=== PATIENT | female | born 1985 | race Caucasian/White ===

== ENCOUNTER 2024-04-08 10:58 | Outpatient (OUT) | payer OTHER, BC, SELFPAY ==
[2024-04-08 11:30] LABS: Alanine Aminotransferase 22 U/L (14-59); Anion Gap 12.3; Aspartate Amino Transferase 12 U/L (15-37); Carbon Dioxide 25.6 mmol/L (21.0-32.0); Chloride 103 mmol/L (98-107); Potassium 3.9 mmol/L (3.5-5.1); Sodium 137 mmol/L (136-145)
[2024-04-14 15:10] LABS: Oxcarbazepine (Trileptal),S 13 ug/mL (10-35)
== END 2024-04-08 10:59 | disposition home or self-care (01) ==
LOC: LAB 11:02
PROVIDERS: PCP Family Medicine; Visit Provider Psychiatry & Neurology Neurology
DX: R51.9 Headache, unspecified (principal); G40.909 Epilepsy, unspecified, not intractable, without status epilepticus
CPT/HCPCS: 36415; 80051; 80183; 84450; 84460

== ENCOUNTER 2024-05-24 10:09 | Outpatient (OUT) | payer OTHER, BC, SELFPAY ==
--- OUTSIDE RECORDS SUMMARY | 2024-05-24 10:33 | XMS_ITS | CCD ---
Author Organization [facility] Care Team Providers Care Psychiatric Np Name Role Phone FRANCIE GUADALUPE Unavailable Unavailable FRANCIE GUADALUPE Unavailable Unavailable SELF, REFERRED Unavailable Unavailable BECERRA DUANE Unavailable Unavailable HUMBLE, ABDULAZIM Unavailable Unavailable HUMBLE, ABDULAZIM Unavailable Unavailable SELF, REFERRED Unavailable Unavailable BECERRA, DUANE Unavailable Unavailable AK Unavailable Unavailable HUMBLE, ABDULAZIM Unavailable Unavailable [place] Unavailable Unavailable [facility] Unavailable Unavailable Wynkoop, Leticia Unavailable Unavailable Wynkoop, Leticia Unavailable Unavailable Wynkoop, Leticia Unavailable Unavailable BECERRA, DUANE Unavailable Unavailable Wynkoop, Leticia Unavailable Unavailable Wynkoop, Leticia Unavailable Unavailable Wynkoop, Leticia Unavailable Unavailable BECERRA, DUANE Unavailable Unavailable BECERRA, DR DEAL A Primary Care Unavailable PAY, DR PACE Admitting Unavailable PAY, DR PACE Attending Unavailable GRECHPAO SMITH Consulting Unavailable BILL SHANE Consulting Unavailable KARASIK, DR CHIANG Admitting Unavailable KARASIK, DR CHIANG Attending Unavailable BECERRA, DR DEAL A Primary Care Unavailable KARASIK, DR CHIANG Consulting Unavailable BECERRA, DR DEAL A Primary Care Unavailable RADHA BOSCH Admitting Unavailable RADHA BOSCH Attending Unavailable RADHA BOSCH Consulting Unavailable Brigitte Bradley Unavailable BEN RHODES Attending Unavailable BEN RHODES Attending Unavailable Unallocated , Noms Provider Primary Care Provi isaiah Allergies Allergy Classification Reported Allergen(s) Allergy Type Date of Onset Reaction(s) Facility (1 source) acetaminophen / HYDROcodone Drug Allergy 12-07-2017 [facility] Medications Current Medications Medication Drug Class(es) Dates Sig (Normalized) Sig (Original) busPIRone hydrochloride 5 mg oral tablet (4 sources) Start: 09-24-2023 take 5 mg by mouth once daily Buspirone Active 5 MG PO Daily September 24, 2023 12:00am Start: 03-30-2023 busPIRone (Bus par) 5 MG tablet every 12 (twelve) hours. 03/30/2023 Active Crutches-Aluminum - (1 source) Start: 12-27-2018 Crutches-Alumi num - as directed Dec, Active magnesium oxide 500 mg oral tablet (4 sources) Start: 09-24-2023 magnesium oxid e 500 MG tablet Daily 09/24/2023 Active Start: 09-24-2023 take 250 mg by mouth once iron y Magnesium Oxide Active 250 MG PO Daily September 24, 2023 12:00am ondansetron 4 mg disintegrating oral tablet (4 sources) Serotonin-3 Receptor Antagonist Start: 12-19-2021 take 1 tablet by mouth every eight hours as needed ondansetron ODT (Zofran-ODT) 4 MG disintegrating tablet Take 4 mg by mouth every 8 (eight) hours if needed. 12/19/2021 Active Start: 05-31-2021 take 1 tablet under the tongue three times daily as needed for nausea and vomiting Zofran 4 MG 1 tablet Orally TID prn 1 tablet sublingual up to 3 times a day as needed for nausea and vomiting May, Active OXcarbazepine 300 mg oral tablet (7 sources) Anti-epileptic Agent Start: 02-03-2024 End: 10-09-2024 take 1 tablet by mouth in the morning OXcarbazepine (Trileptal) 300 MG tablet Indications: Epilepsy undetermined as to focal or generalized (CMS/HCC) Take 1 tablet (300 mg) by mouth in the morning and 1 tablet (300 mg) before bedtime. 60 tablet 5 04/12/2024 10/09/2024 Active Start: 09-24-2023 take 300 mg by mouth twice daily Oxcarbazepine Active 300 MG PO Twice daily September 24, 2023 12:00am Trileptal Active pantoprazole 40 mg delayed release oral tablet (2 sources) Proton Pump Inhibitor take 1 tablet by mouth before mealtime pantoprazole (ProtoNix) 40 MG EC tablet Take 40 mg by mouth in the morning. Take before meals. Do not crush, chew, or split.. Active rizatriptan 10 mg oral tablet (2 sources) Serotonin-1b and Serotonin-1d Receptor Agonist Start: rizatriptan (Maxalt) 10 MG tablet Indications: Migraine without aura, not intractable, without status migrainosus (CMS/HCC) 1 tab PRN migraine, may repeat in 2 hours if needed. No more than 2 per TINAJERO or 4 per week. 9 tablet 5 04/12/2024 Active Completed/Discontinued Medications Medication Drug Class(es) Dates Sig (Normalized) Sig (Original) Levonorgestrel (1 source) Progestin, Progestin-containi ng Intrauterine Device Mirena Not-Taking 24 hr metoprolol succinate 25 mg extended release oral tablet (6 sources) beta-Adrenergic Carey Start: 03-16-2024 End: 04-12-2024 take 1 tablet by mouth every twenty-four hours in the morning metoprolol succinate XL (Toprol-XL) 25 MG 24 hr tablet Indications: Migraine without aura, not intractable, without status migrainosus (CMS/HCC) TAKE 1 TABLET BY MOUTH IN THE MORNING 30 tablet 03/16/2024 04/12/2024 Discontinued Start: 09-24-2023 Metoprolol Suc cinate Active MG PO September 24, 2023 12:00am take 1 tablet by neil th every twenty-four hours metoprolol succinate XL (Toprol-XL) 100 MG 24 hr tablet Take by mouth Do not crush or chew. Active SUMAtriptan 100 mg oral tablet (3 sources) Serotonin-1b and Serotonin-1d Receptor Agonist Start: 04-28-2022 End: 04-12-2024 take 1 tablet by mouth once SUMAtriptan (Imitrex) 100 MG tablet Take 100 mg by mouth 1 (one) time if needed. 04/28/2022 04/12/2024 Discontinued Problems Active Problems Problem Classification Problem Date Documented Date Episodic/Chronic Abdominal pain (7 sources) Right upper quadrant pain; Translations: [Epigastric pain] Onset: 10-04-2021 Episodic Biliary tract disease (2 sources) Calculus of bile duct without cholangitis or cholecystitis without obstruction; Translations: [Calculus of gallbladder without cholecystitis without obstruction] Onset: 10-08-2021 Episodic Digestive congenital anomalies (3 sources) Enlargement of tongue; Translations: [Macroglossia] Onset: 02-01-2023 02-01-2023 Chronic Epilepsy; convulsions (6 sources) Epilepsy, unspecified, not intractable, without status epilepticus; Translations: [Epilepsy] Onset: 12-04-2017 02-01-2023 Chronic External Injury - Cut / Brewer (1 source) Contact with powered garden and outdoor hand tools and machinery, initial encounter; Translations: [CNTCT W POWERED GARDEN AND OUTDOOR HAND TOOLS AND MACH, INIT] Onset: 12-04-2017 External Injury - Unspecified (1 source) Activity, gardening and landscaping; Translations: [ACTIVITY, GARDENING AND LANDSCAPING] Onset: 12-04-2017 Headache; including migraine (5 sources) Migraine without aura, not refractory ; Translations: [Migraine without aura, not intractable, without status migrainosus] Onset: 02-01-2023 02-01-2023 Chronic Open wounds of extremities (4 sources) Laceration of flexor muscle, fascia and tendon of right index finger at wrist and hand level, subsequent encounter; Translations: [Laceration of flexor muscle, fascia and tendon of right index finger at wrist and hand level, initial encounter] Onset: 12-04-2017 Episodic Other aftercare (1 source) Other terminologist (current) drug therapy; Translations: [OTH ROLLWAY WORKER CURRENT DRUG THERAPY] Onset: 10-08-2021 Episodic Other connective tissue disease (5 sources) Spasm of cervical paraspinous muscle; Translations: [Other muscle spasm] Onset: 02-03-2023 02-03-2023 Episodic Other injuries and conditions due to external causes (7 sources) Injury of digital nerve of right index finger, initial encounter; Translations: [Unspecified injury of right wrist, hand and finger(s), initial encounter] Onset: 12-04-2017 Episodic Other nervous system disorders (3 sources) Circadian rhythm sleep disorder of shift work type; Translations: [Circadian rhythm sleep disorder, shift work type] Onset: 02-01-2023 02-01-2023 Chronic Residual codes; unclassified (5 sources) Obstructive sleep apnea syndrome; Translations: [Obstructive sleep apnea (adult) (pediatric)] Onset: 02-01-2023 02-01-2023 Chronic Substance-related disorders (2 sources) Nicotine dependence, unspecified, uncomplicated; Translations: [Nicotine dependence, cigarettes, uncomplicated] Onset: 12-04-2017 Chronic Unclassified (2 sources) Unknown / UNK(Unknown) Onset: 12-04-2017 Unclassified (1 source) ELEV LVLS LIVER TRANSAMINASE LVLS; Translations: [ELEV LVLS LIVER TRANSAMINASE LVLS] Onset: 10-08-2021 Past or Other Problems Problem Classification Problem Date Documented Date Episodic/Chronic Headache; including migraine (1 source) Headache; including migraine Onset: 05-31-2021 Resolved: 05-31-2021 Immunizations and screening for infectious disease (1 source) Encounter for screening for human papillomavirus (HPV); Translations: [ENC SCREENING HUMAN PAPILLOMAVIRUS] Onset: 08-01-2021 Episodic Other screening for suspected conditions (not mental disorders or infectious disease) (4 sources) Encounter for screening for malignant neoplasm of cervix; Translations: [ENC SCREENING MALIG NEOPLASM CERV] Onset: 07-30-2021 Episodic Other upper respiratory disease (3 sources) Pharyngeal stenosis; Translations: [Other diseases of pharynx] Onset: 02-01-2023 02-01-2023 Episodic Spondylosis; intervertebral disc disorders; other back problems (3 sources) Myofascial pain syndrome; Translations: [Cervicalgia] Onset: 02-03-2023 02-03-2023 Episodic Results Test Name Value Interpretation Reference Range Facility No Panel InformationOrdered By: Zenobia Vyas on 09-24-2023 Quick Strep (POC) [facility] AMYLASEon 12-19-2021 Amylase [Catalytic activity/Vol] 49 U/L Normal 25-115 [facility] Comment on above: Performed By: #### L IPA, LIVER, BMP, NIMESH #### [facility] [address] [address] [address] Remington Correia CBC AUTO DIFFon 12-19-2021 BASO # 0.0 103/ul Normal 0.0-0.1 [facility] Comment on above: Performed By: #### C BC #### [facility] [address] [address] [address] Remington Correia Basophils/100 WBC (Bld) 0.2 % Normal 0.2-2.0 [facility] Comment on above: Performed By: #### C BC #### [facility] [address] [address] [address] Remington Correia EO # 0.1 103/ul Normal 0.0-0.7 [facility] Comment on above: Performed By: #### C BC #### [facility] [address] [place] [address] Dr. Remington Correia Eosinophils/100 WBC (Bld) 1.6 % Normal 0.9-7.0 [facility] Comment on above: Performed By: #### C BC #### [facility] [address] [place] [address] Dr. Remington Correia Erythrocyte distribution width (RBC) [Ratio] 12.1 % Normal 11.0-15.0 [facility] Comment on above: Performed By: #### C BC #### [facility] [address] [place] [address] Dr. Remington Correia Hematocrit (Bld) [Volume fraction] 40.2 % Normal 36.0-48.0 [facility] Comment on above: Performed By: #### C BC #### [facility] [address] [place] [address] Dr. Remington Correia Hemoglobin (Bld) [Mass/Vol] 13.7 g/dL Normal 12.0-16.0 [facility] Comment on above: Performed By: #### C BC #### [facility] [address] [place] [address] Dr. Remington Correia IG # 0.04 10e3/ul Critically high 0.00-0.03 [facility] Comment on above: Performed By: #### C BC #### [facility] [address] [place] [address] Dr. Remington Correia IG % 0.5 % Normal 0.0-0.5 [facility] Comment on above: Performed By: #### C BC #### [facility] [address] [place] [address] Dr. Remington Correia LYMPH # 1.5 103/ul Normal 1.2-3.8 [facility] Comment on above: Performed By: #### C BC #### [facility] [address] [place] [address] Dr. Remington Correia Lymphocytes/100 WBC (Bld) 17.2 % Critically low 20.5-60.0 [facility] Comment on above: Performed By: #### C BC #### [facility] [address] [place] [address] Dr. Remington Correia MANUAL DIFF REQ NO Normal [facility] Comment on above: Performed By: #### C BC #### [facility] [address] [place] [address] Dr. Remington Correia MCH (RBC) [Entitic mass] 32.4 pg Normal 26.7-34.0 [facility] Comment on above: Performed By: #### C BC #### [facility] [address] [place] [address] Dr. Remington Correia MCHC (RBC) [Mass/Vol] 34.1 g/dL Normal 29.9-35.2 [facility] Comment on above: Performed By: #### C BC #### [facility] [address] [place] [address] Dr. Remington Correia MCV (RBC) [Entitic vol] 95.0 fL Normal 81.0-99.0 [facility] Comment on above: Performed By: #### C BC #### [facility] [address] [place] [address] Dr. Remington Correia MONO # 0.7 103/ul Normal 0.3-0.8 [facility] Comment on above: Performed By: #### C BC #### [facility] [address] [place] [address] Dr. Remington Correia Monocytes/100 WBC (Bld) 7.7 % Normal 1.7-12.0 [facility] Comment on above: Performed By: #### C BC #### [facility] [address] [place] [address] Dr. Remington Correia NEUT # 6.5 103/ul Normal 1.4-6.5 [facility] Comment on above: Performed By: #### C BC #### [facility] [address] [place] [address] Dr. Remington Correia Neutrophils/100 WBC (Bld) 72.8 % Normal 43.0-75.0 [facility] Comment on above: Performed By: #### C BC #### [facility] [address] [place] [address] Dr. Remington Correia Platelet mean volume (Bld) [Entitic vol] 9.0 fL Critically low 9.5-13.5 [facility] Comment on above: Performed By: #### C BC #### [facility] [address] [place] [address] Dr. Remington Correia PLT 344 103/ul Normal 150-450 [facility] Comment on above: Performed By: #### C BC #### [facility] [address] [place] [address] Dr. Remington Correia RBC 4.23 106/ul Normal 4.20-5.40 [facility] Comment on above: Performed By: #### C BC #### [facility] [address] [place] [address] Dr. Remington Correia WBC 8.9 103/ul Normal 4.0-11.0 [facility] Comment on above: Performed By: #### C BC #### [facility] [address] [place] [address] Dr. Remington Correia LIPASEon 12-19-2021 Lipase [Catalytic activity/Vol] 84.0 U/L Normal 73.0-393.0 [facility] Comment on above: Performed By: #### L IPA, LIVER, BMP, NIMESH #### [facility] [address] [place] [address] Dr. Remington Correia LIVER PROFILEon 12-19-2021 Albumin [Mass/Vol] 4.1 g/dL Normal 3.4-5.0 [facility] Comment on above: Performed By: #### L IPA, LIVER, BMP, NIMESH #### [facility] [address] [place] [address] Dr. Remington Correia Albumin/Globulin [Mass ratio] 1.2 {ratio} Normal [facility] Comment on above: Performed By: #### L IPA, LIVER, BMP, NIMESH #### [facility] [address] [address] [address] Remington Correia ALP [Catalytic activity/Vol] 49 U/L Normal 46-116 [facility] Comment on above: Performed By: #### L IPA, LIVER, BMP, NIMESH #### [facility] [address] [place] [address] Dr. Remington Correia ALT [Catalytic activity/Vol] 36 U/L Normal 14-59 [facility] Comment on above: Performed By: #### L IPA, LIVER, BMP, NIMESH #### [facility] [address] [place] [address] Dr. Remington Correia AST [Catalytic activity/Vol] 32 U/L Normal 15-37 [facility] Comment on above: Performed By: #### L IPA, LIVER, BMP, NIMESH #### [facility] [address] [place] [address] Dr. Remington Correia BILI, CONJUGATED 0.2 mg/dL Normal 0.0-0.2 [facility] Comment on above: Performed By: #### L IPA, LIVER, BMP, NIMESH #### [facility] [address] [place] [address] Dr. Remington Correia Bilirubin [Mass/Vol] 0.5 mg/dL Normal 0.2-1.0 [facility] Comment on above: Performed By: #### L IPA, LIVER, BMP, NIMESH #### [facility] [address] [place] [address] Dr. Remington Correia Globulin (S) [Mass/Vol] 3.5 g/dL Normal [facility] Comment on above: Performed By: #### L IPA, LIVER, BMP, NIMESH #### [facility] [address] [place] [address] Dr. Remington Correia Protein [Mass/Vol] 7.6 g/dL Normal 6.4-8.2 [facility] Comment on above: Performed By: #### L IPA, LIVER, BMP, NIMESH #### [facility] [address] [place] [address] Dr. Remington Correia PROF CHEM 8 (BAS METB)on Anion gap [Moles/Vol] 14.1 mmol/L Normal [facility] Comment on above: Performed By: #### L IPA, LIVER, BMP, NIMESH #### [facility] [address] [address] [address] Remington Correia Calcium [Mass/Vol] 9.0 mg/dL Normal 8.5-10.1 [facility] Comment on above: Performed By: #### L IPA, LIVER, BMP, NIMESH #### [facility] [address] [address] [address] Remington Correia Chloride [Moles/Vol] 101 mmol/L Normal 98-107 [facility] Comment on above: Performed By: #### L IPA, LIVER, BMP, NIMESH #### [facility] [address] [place] [address] Dr. Remington Correia CO2 [Moles/Vol] 26.5 mmol/L Normal 21.0-32.0 [facility] Comment on above: Performed By: #### L IPA, LIVER, BMP, NIMESH #### [facility] [address] [address] [address] Remington Correia Creatinine [Mass/Vol] 0.80 mg/dL Normal 0.55-1.02 [facility] Comment on above: Performed By: #### L IPA, LIVER, BMP, NIMESH #### [facility] [address] [address] [address] Remington Correia EGFR-AF MONEGASQUE >60 Normal >=60 [facility] Comment on above: Performed By: #### L IPA, LIVER, BMP, NIMESH #### [facility] [address] [address] [address] Remington Correia EGFR-NON AF MONEGASQUE >60 Normal >=60 [facility] Comment on above: Performed By: #### L IPA, LIVER, BMP, NIMESH #### [facility] [address] [address] [address] Remington Correia Glucose [Mass/Vol] 123 mg/dL Critically high 74-106 [facility] Comment on above: Performed By: #### L IPA, LIVER, BMP, NIMESH #### [facility] [address] [place] [address] Dr. Remington Correia Potassium [Moles/Vol] 3.6 mmol/L Normal 3.5-5.1 [facility] Comment on above: Performed By: #### L IPA, LIVER, BMP, NIMESH #### [facility] [address] [place] [address] Dr. Remington Correia Sodium [Moles/Vol] 138 mmol/L Normal 136-145 [facility] Comment on above: Performed By: #### L IPA, LIVER, BMP, NIMESH #### [facility] [address] [place] [address] Dr. Remington Correia Urea nitrogen [Mass/Vol] 9.0 mg/dL Normal 7.0-18.0 [facility] Comment on above: Performed By: #### L IPA, LIVER, BMP, NIMESH #### [facility] [address] [place] [address] Dr. Remington Correia Urea nitrogen/Creatinine [Mass ratio] 11.2 mg/mg Normal [facility] Comment on above: Performed By: #### L IPA, LIVER, BMP, NIMESH #### [facility] [address] [place] [address] Dr. Remington Correia CBC AUTO DIFFon 10-04-2021 BASO # 0.0 103/ul Normal 0.0-0.1 [facility] Comment on above: Performed By: #### L IPA, LIVER, BMP, NIMESH #### [facility] [address] [place] [address] Dr. Remington Correia Basophils/100 WBC (Bld) 0.3 % Normal 0.2-2.0 [facility] Comment on above: Performed By: #### L IPA, LIVER, BMP, NIMESH #### [facility] [address] [place] [address] Dr. Remington Correia EO # 0.1 103/ul Normal 0.0-0.7 [facility] Comment on above: Performed By: #### L IPA, LIVER, BMP, NIMESH #### [facility] [address] [place] [address] Dr. Remington Correia Eosinophils/100 WBC (Bld) 0.4 % Critically low 0.9-7.0 [facility] Comment on above: Performed By: #### L IPA, LIVER, BMP, NIMESH #### [facility] [address] [place] [address] Dr. Remington Correia Erythrocyte distribution width (RBC) [Ratio] 11.9 % Normal 11.0-15.0 [facility] Comment on above: Performed By: #### L IPA, LIVER, BMP, NIMESH #### [facility] [address] [place] [address] Dr. Remington Correia Hematocrit (Bld) [Volume fraction] 41.4 % Normal 36.0-48.0 [facility] Comment on above: Performed By: #### L IPA, LIVER, BMP, NIMESH #### [facility] [address] [place] [address] Dr. Remington Correia Hemoglobin (Bld) [Mass/Vol] 14.1 g/dL Normal 12.0-16.0 [facility] Comment on above: Performed By: #### L IPA, LIVER, BMP, NIMESH #### [facility] [address] [place] [address] Dr. Remington Correia IG # 0.04 10e3/ul Critically high 0.00-0.03 [facility] Comment on above: Performed By: #### L IPA, LIVER, BMP, NIMESH #### [facility] [address] [place] [address] Dr. Remington Correia IG % 0.3 % Normal 0.0-0.5 [facility] Comment on above: Performed By: #### L IPA, LIVER, BMP, NIMESH #### [facility] [address] [place] [address] Dr. Remington Correia LYMPH # 1.8 103/ul Normal 1.2-3.8 [facility] Comment on above: Performed By: #### L IPA, LIVER, BMP, NIMESH #### [facility] [address] [place] [address] Dr. Remington Correia Lymphocytes/100 WBC (Bld) 13.5 % Critically low 20.5-60.0 [facility] Comment on above: Performed By: #### L IPA, LIVER, BMP, NIMESH #### [facility] [address] [address] [address] Remington Correia MANUAL DIFF REQ NO Normal [facility] Comment on above: Performed By: #### L IPA, LIVER, BMP, NIMESH #### [facility] [address] [place] [address] Dr. Remington Correia MCH (RBC) [Entitic mass] 31.9 pg Normal 26.7-34.0 [facility] Comment on above: Performed By: #### L IPA, LIVER, BMP, NIMESH #### [facility] [address] [place] [address] Dr. Remington Correia MCHC (RBC) [Mass/Vol] 34.1 g/dL Normal 29.9-35.2 [facility] Comment on above: Performed By: #### L IPA, LIVER, BMP, NIMESH #### [facility] [address] [place] [address] Dr. Remington Correia MCV (RBC) [Entitic vol] 93.7 fL Normal 81.0-99.0 [facility] Comment on above: Performed By: #### L IPA, LIVER, BMP, NIMESH #### [facility] [address] [place] [address] Dr. Remington Correia MONO # 1.1 103/ul Critically high 0.3-0.8 [facility] Comment on above: Performed By: #### L IPA, LIVER, BMP, NIMESH #### [facility] [address] [place] [address] Dr. Remington Correia Monocytes/100 WBC (Bld) 7.8 % Normal 1.7-12.0 [facility] Comment on above: Performed By: #### L IPA, LIVER, BMP, NIMESH #### [facility] [address] [place] [address] Dr. Remington Correia NEUT # 10.5 103/ul Critically high 1.4-6.5 [facility] Comment on above: Performed By: #### L IPA, LIVER, BMP, NIMESH #### [facility] [address] [place] [address] Dr. Remington Correia Neutrophils/100 WBC (Bld) 77.7 % Critically high 43.0-75.0 [facility] Comment on above: Performed By: #### L IPA, LIVER, BMP, INMESH #### [facility] [address] [place] [address] Dr. Remington Correia Platelet mean volume (Bld) [Entitic vol] 9.0 fL Critically low 9.5-13.5 [facility] Comment on above: Performed By: #### L IPA, LIVER, BMP, NIMESH #### [facility] [address] [place] [address] Dr. Remington Correia PLT 342 103/ul Normal 150-450 [facility] Comment on above: Performed By: #### L IPA, LIVER, BMP, NIMESH #### [facility] [address] [place] [address] Dr. Remington Correia RBC 4.42 106/ul Normal 4.20-5.40 [facility] [facility] Comment on above: Performed By: #### L IPA, LIVER, BMP, NIMESH #### [facility] [address] [place] [address] Dr. Remington Correia WBC 13.5 103/ul Critically high 4.0-11.0 [facility] Comment on above: Performed By: #### L IPA, LIVER, BMP, NIMESH #### [facility] [address] [place] [address] Dr. Remington Correia ER URINE PROFILEon 2 Bilirubin Ql (U) Negative Normal NEGATIVE [facility] Comment on above: Performed By: #### L IPA, LIVER, BMP, NIMESH #### [facility] [address] [place] [address] Dr. Remington Correia Clarity (U) CLEAR Normal CLEAR [facility] Comment on above: Performed By: #### L IPA, LIVER, BMP, NIMESH #### [facility] [address] [place] [address] Dr. Remington Correia Color (U) YELLOW Normal YELLOW [facility] Comment on above: Performed By: #### L IPA, LIVER, BMP, NIMESH #### [facility] [address] [address] [address] Remington ROLLINS A micrscopic examination will be performed if indicated. Normal [facility] Comment on above: Performed By: #### L IPA, LIVER, BMP, NIMESH #### [facility] [address] [address] [address] Remington Correia Glucose Ql (U) Negative Normal NEGATIVE [facility] Comment on above: Performed By: #### L IPA, LIVER, BMP, NIMESH #### [facility] [address] [address] [address] Remington Correia Hemoglobin Ql (U) Negative Normal NEGATIVE [facility] Comment on above: Performed By: #### L IPA, LIVER, BMP, NIMESH #### [facility] [address] [address] [address] Remington Correia Ketones Ql (U) Negative Normal NEGATIVE [facility] Comment on above: Performed By: #### L IPA, LIVER, BMP, NIMESH #### [facility] [address] [address] [address] Remington Correia LEUKOCYTES Negative Normal NEGATIVE [facility] Comment on above: Performed By: #### L IPA, LIVER, BMP, NIMESH #### [facility] [address] [address] [address] Remington Correia Nitrite Ql (U) Negative Normal NEGATIVE [facility] Comment on above: Performed By: #### L IPA, LIVER, BMP, NIMESH #### [facility] [address] [address] [address] Remington Correia pH (U) 6.0 [pH] Normal 5-9 [facility] Comment on above: Performed By: #### L IPA, LIVER, BMP, NIMESH #### [facility] [address] [address] [address] Remington Correia SPEC GRAVITY 1.025 Normal 1.005-<=1.02 5 [facility] Comment on above: Performed By: #### L IPA, LIVER, BMP, NIMESH #### [facility] [address] [address] [address] Remington Correia UA PROTEIN Negative Normal NEGATIVE/ TRACE [facility] Comment on above: Performed By: #### L IPA, LIVER, BMP, NIMESH #### [facility] [address] [address] [address] Remington Correia UR MICRO IND NOT INDICATED Normal [facility] Comment on above: Performed By: #### L IPA, LIVER, BMP, NIMESH #### [facility] [address] [place] [address] Dr. Remington Correia Urobilinogen Qn (U) 1.0 {Gena'U}/dL Normal 0.2 - 1. 0 [facility] Comment on above: Performed By: #### L IPA, LIVER, BMP, NIMESH #### [facility] [address] [place] [address] Dr. Remington Correia LIPASEon 10-04-2021 Lipase [Catalytic activity/Vol] 114.0 U/L Normal 23.0-300.0 [facility] Comment on above: Performed By: #### H STROPN, CMP, LIPA #### [facility] [address] [place] [address] Dr. Remington Correia URon 10-04-2021 , QUAL Negative Normal NEGATIVE [facility] Comment on above: Performed By: #### L IPA, LIVER, BMP, NIMESH #### [facility] [address] [place] [address] Dr. Remington Correia PROF 14(COMP METB)on 022 Albumin [Mass/Vol] 4.1 g/dL Normal 3.4-5.0 [facility] Comment on above: Performed By: #### H STROPN, CMP, LIPA #### [facility] [address] [place] [address] Dr. Remington Correia Albumin/Globulin [Mass ratio] 1.1 {ratio} Normal [facility] Comment on above: Performed By: #### H STROPN, CMP, LIPA #### [facility] [address] [place] [address] Dr. Remington Correia ALP [Catalytic activity/Vol] 61 U/L Normal 46-116 [facility] Comment on above: Performed By: #### H STROPN, CMP, LIPA #### [facility] [address] [address] [address] Remington Correia ALT [Catalytic activity/Vol] 66 U/L Critically high 14-59 [facility] Comment on above: Performed By: #### H STROPN, CMP, LIPA #### [facility] [address] [address] [address] Remington Correia Anion gap [Moles/Vol] 15.5 mmol/L Normal [facility] Comment on above: Performed By: #### H STROPN, CMP, LIPA #### [facility] [address] [place] [address] Dr. Remington Correia AST [Catalytic activity/Vol] 100 U/L Critically high 15-37 [facility] Comment on above: Performed By: #### H STROPN, CMP, LIPA #### [facility] [address] [place] [address] Dr. Remington Correia Bilirubin [Mass/Vol] 0.8 mg/dL Normal 0.2-1.3 [facility] Comment on above: Performed By: #### H STROPN, CMP, LIPA #### [facility] [address] [place] [address] Dr. Remington Correia Calcium [Mass/Vol] 9.0 mg/dL Normal 8.5-10.1 [facility] Comment on above: Performed By: #### H STROPN, CMP, LIPA #### [facility] [address] [place] [address] Dr. Remington Correia Chloride [Moles/Vol] 101 mmol/L Normal 98-107 [facility] Comment on above: Performed By: #### H STROPN, CMP, LIPA #### [facility] [address] [address] [address] Remington Correia CO2 [Moles/Vol] 25.3 mmol/L Normal 22.0-30.0 [facility] Comment on above: Performed By: #### H STROPN, CMP, LIPA #### [facility] [address] [address] [address] Remington Correia Creatinine [Mass/Vol] 0.72 mg/dL Normal 0.52-1.04 [facility] Comment on above: Performed By: #### H STROPN, CMP, LIPA #### [facility] [address] [address] [address] Remington Correia EGFR-AF MONEGASQUE >60 Normal >=60 [facility] Comment on above: Performed By: #### H STROPN, CMP, LIPA #### [facility] [address] [address] [address] Remington Correia EGFR-NON AF MONEGASQUE >60 Normal >=60 [facility] Comment on above: Performed By: #### H STROPN, CMP, LIPA #### [facility] [address] [address] [address] Remington Correia Globulin (S) [Mass/Vol] 3.7 g/dL Normal [facility] Comment on above: Performed By: #### H STROPN, CMP, LIPA #### [facility] [address] [address] [address] Remnigton Correia Glucose [Mass/Vol] 111 mg/dL Critically high 74-106 T [facility] Comment on above: Performed By: #### H STROPN, CMP, LIPA #### [facility] [address] [address] [address] Remington Correia Potassium [Moles/Vol] 3.8 mmol/L Normal 3.4-5.0 [facility] Comment on above: Performed By: #### H STROPN, CMP, LIPA #### [facility] [address] [address] [address] Remington Correia Protein [Mass/Vol] 7.8 g/dL Normal 6.1-8.2 [facility] Comment on above: Performed By: #### H STROPN, CMP, LIPA #### [facility] [address] [address] [address] Remington Correia Sodium [Moles/Vol] 138 mmol/L Normal 137-145 [facility] Comment on above: Performed By: #### H STROABNER, CMP, LIPA #### [facility] [address] [address] [address] Remington Correia Urea nitrogen [Mass/Vol] 12.0 mg/dL Normal 7.0-18.0 [facility] Comment on above: Performed By: #### H JYOTI CMP, LIPA #### [facility] [address] [address] [address] Remington Correia Urea nitrogen/Creatinine [Mass ratio] 16.7 mg/mg Normal [facility] Comment on above: Performed By: #### H JYOTI CMP, LIPA #### [facility] [address] [address] [address] Remington Correia TROPONIN, HIGH SENSITIVITYon 10-04-2021 HSTROP 4.9 pg/mL Normal 4.0-35.5 [facility] Comment on above: Result Comment: CUT- OFF POINTS HAVE BEEN ESTABLISHED BASED ON THE FOURTH UNIVERSAL DEFINITIONS OF MYOCARDIAL INFARCTION. THE UPPER REFERENCE LIMIT (URL) OF TROPONIN, DEFINED THE 99TH PERCENTILE OF cTnI DISTRIBUTION IN A REFERENCE POPULATION, HAS BEEN CONFIRMED THE DECISION THRESHOLD FOR [place] DIAGNOSIS. Performed By: #### H JEVON MONTES, LIPA #### [facility] [address] [place] [address] Dr. Remington Correia US SINGLE QUAD RT UPPERon US SINGLE QUAD RT UPPER EXAM: US SINGLE QUAD RT UPPER HISTORY: Abdominal pain COMPARISON: None. TECHNIQUE: Sonographic examination of the right upper quadrant of the abdomen using grayscale, color Doppler, and spectral waveform analysis. FINDINGS: Normal contour and echotexture of the liver, 16.1 cm. No discrete hepatic mass. No intrahepatic or extrahepatic biliary ductal dilatation. Common duct measures 8.6 mm in diameter. Normal waveform and direction of flow of the portal vein. Gallbladder wall thickness of 2 mm. Multiple gallstones measuring up to 1.5 cm. Negative sonographic Rodriguez sign. No pericholecystic fluid. Normal visualized pancreas. Normal size of the right kidney, which measures 14.0 cm in length. Increased echogenicity of the renal medullary diffusely. No hydronephrosis. Normal color flow. No free fluid. SUMMARY: 1. Cholelithiasis without evidence for cholecystitis. 2. Dilated common bile duct without intrahepatic ductal dilatation. No visualized choledocholith. 3. Diffusely increased echogenicity of the renal medullary, which can be associated with medullary nephrocalcinosis. Electronically authenticated by: BILL SHANE Date: 2021-10-04 17:30 Normal [facility] PAP ACOG PANEL 2: 30 to 65on 08-03-2021 . . Normal [facility] Comment on above: Result Comment: Perf ormed at: WB Performed By: #### [id number] #### [facility] [address] [address] [address] Remington Correia Age Gdln ACOG Testing 30-65 [facility] Comment on above: Performed By: #### 4 [id number] #### [facility] [address] [address] [address] Remington Correia DIAGNOSIS: Comment Normal [facility] Comment on above: Result Comment: NEGA TIVE FOR INTRAEPITHELIAL LESION OR MALIGNANCY. Performed at: WB Performed By: #### 4 [id number] #### [facility] [address] [address] [address] Remington Correia HPV Aptima Negative Normal Negative [facility] Comment on above: Result Comment: This nucleic acid amplification test detects fourteen high-risk HPV types (16,18,31,33,35,39,45,51,52,56,58,59,66,68) without differentiation. Performed at: =G Performed By: #### 4 [id number] #### [facility] [address] [address] [address] Remington Correia Methodology: Comment Normal [facility] Comment on above: Result Comment: This liquid based ThinPrep(R) pap test was screened with the use of an image guided system. Performed at: WB Performed By: #### 4 [id number] #### [facility] [address] [address] [address] Remington Correia Note: Comment Normal [facility] Comment on above: Result Comment: The Pap smear is a screening test designed to aid in the detection of premalignant and malignant conditions of the uterine cervix. It is not a diagnostic procedure and should not be used as the sole means of detecting cervical cancer. Both false-positive and false-negative reports do occur. . Performed at: WB Performed By: #### [id number] #### [facility] [address] [place] [address] Dr. Remington Correia Performed by: Comment Normal [facility] Comment on above: Result Comment: Karrie Warren, Family Centered Specialist Performed at: WB Performed By: #### [id number] #### [facility] [address] [address] [address] Remington Correia Specimen adequacy: Comment Normal [facility] Comment on above: Result Comment: Sati sfactory for evaluation. Endocervical and/or squamous metaplastic cells (endocervical component) are present. Performed at: WB Performed By: #### 4 [id number] #### [facility] [address] [place] [address] Dr. Remington Correia Operative Reporton 8 Operative Report MR#: [id number] [facility] Pt. Name: Bettina Coy Room #: 0C Discharge Date: Birthdate: 1985 OPERATIVE REPORTDATE OF SURGERY: 12/07/2017SURGEON: Donny Panda M.D.COAL INSPECTOR: Dr. Francisco.PREOPERATIVE DIAGNOSIS: Right index finger laceration with zone 1 flexortendon injury and digital nerve laceration.POSTOPERATI VE DIAGNOSIS: Right index finger laceration with zone 1 flexortendon injury and digital nerve laceration.PROCEDURE PERFORMED:1. Right index finger laceration wound exploration.2. Right index finger zone 1 flexor tendon primary repair.3. Repair volar plate DIP joint4. Right index finger, bilateral digital nerve repair. radial digitalnerve with nerve conduitANESTHESIA: MAC.FLUIDS: Per Anesthesia protocol.BLOOD LOSS: None.SPECIMENS: None.COMPLICATIONS: None.OPERATIVE INDICATIONS: This is a 32-year-old female who sustained alaceration to her right index finger 3 days ago. She was seen in theemergency department, where she was washed out and closed and booked forsurgery on Thursday. The patient was amenable to the plan. She elected toundergo surgical intervention today. All risks, benefits, and alternativeswere discussed. Informed consent was obtained.OPERATION IN DETAIL: The patient was greeted in the preoperative holdingarea. Informed consent was confirmed. Right upper extremity was marked bythe operating surgeon. The patient was brought to the OR, where MACanesthesia was smoothly induced. Right upper extremity was prepped anddraped in the usual sterile fashion. Time-out procedures were performed.The arm was exsanguinated and the tourniquet inflated. We began byextending the laceration into a Gabbie type incision both distally andproximally.We were able to identify the 2 ends of the flexor tendon, which hadmigrated only a minimal amount. We also identified the both digital nerves,had been lacerated. Also noted was that both digital arteries had beentransected.We began by closing down the volar plate and capsule at the DIP joint witha nonabsorbable suture in jrtlic-gl-azzwk fashion. We then used a sutureloop to approximate both the proximal and distal ends of the flexor tendon,which we were able to mobilize and came together nicely.The tendon repairhad been secured with 2x Supramid 3.0 suture loops followed withaugmentation of the repair with a 6-0 Prolene established in anepitendinous fashionWe then brought in the microscope for repair of the nerves. We were able torepair the ulnar digital nerve primarily using 9-0 suture. The radialdigital nerve, however, was badly damaged and the gap was unable to beclosed with primary repair. We therefore required a neuro conduit ,approximately size #3 and that was about 1 cm in length. We cut this tosize and sutured both the nerve ends were advanced within the tube, We thencopiously irrigated with normal sterile saline and closed using 5-0 Novafilsuture. We then took the tourniquet down. We evaluated the blood flow.Brisk capillary refill was noted. We also punctured the distal fingertipwith a needle and bleeding was visualized. A dry sterile dressing wasplaced and volar blocking splint was placed over the top. The patient wasawoken from anesthesia without complication. Returned to the PACU in goodcondition.Dr. Panda was present for all critical portions of the procedure andmade all critical decisions regarding this patient.Electronically Signed by:Donny Panda M.D. 12/08/2017 10:09 A Luís Panda M.D. I was present for the entire procedure. Date Dict: 12/07/2017/10:12 P/Pepe Francisco M.D.Date Trans: 12/08/2017 03:47 [id number] 467cc: Duane Becerra D.O. [address] [place] [address] Normal [facility] POC GLUCOSE LABon 12-07-2017 Glucose mass conc 90 mg/dL Normal 70-100 [facility] Comment on above: Performed By: #### 8 [id number] ####[facility] POC URINE PREGNANCYon 2017 HCG.beta subunit ( test) Ql (U) Negative Normal NEGATIVE [facility] Comment on above: Result Comment: Perf ormed in PACU Performed By: #### 8 [id number] ####[facility] [facility] [address], [facility] BASIC METABOLIC PANELon Calcium mass conc 9.6 mg/dL Normal 8.6-10.3 [facility] Comment on above: Order Comment: This order is a replacement of the rejected order with accession [id number]. Performed By: #### 0 0071 ####[facility] [facility] [address], [facility] Chloride molar conc 100 mmol/L Normal 98-107 [facility] Comment on above: Order Comment: This order is a replacement of the rejected order with accession [id number]. Performed By: #### 0 0071 ####[facility] [place] [address], [facility] CO2 molar conc 27 mmol/L Normal 21-31 [facility] Comment on above: Order Comment: This order is a replacement of the rejected order with accession [id number]. Performed By: #### 0 0071 ####[facility] [place] [address], [facility] Creatinine mass conc 0.71 mg/dL Normal 0.60-1.20 [facility] Comment on above: Order Comment: This order is a replacement of the rejected order with accession [id number]. Performed By: #### 0 0071 ####[address] [facility] [place] [address], [facility] GFR/1.73 sq M predicted among blacks MDRD vol rate/area (S/P/Bld) mL/min/{1.73_m2} Normal >60 [facility] Comment on above: Order Comment: This order is a replacement of the rejected order with accession [id number]. Performed By: #### 0 0071 ####[address] [facility] [address], [facility] GFR/1.73 sq M predicted among non-blacks MDRD vol rate/area (S/P/Bld) mL/min/{1.73_m2} Normal >60 [facility] Comment on above: Order Comment: This order is a replacement of the rejected order with accession [id number]. Performed By: #### 0 0071 ####[facility] [facility] [place] [address], [facility] Glucose mass conc 89 mg/dL Normal 70-100 [facility] Comment on above: Order Comment: This order is a replacement of the rejected order with accession [id number]. Performed By: #### 0 0071 ####[facility] [place] [address], [place] Potassium molar conc 3.6 mmol/L Normal 3.5-5.1 [facility] Comment on above: Order Comment: This order is a replacement of the rejected order with accession [id number]. Performed By: #### 0 0071 ####[facility] Sodium molar conc 135 mmol/L Low 136-145 [facility] Comment on above: Order Comment: This order is a replacement of the rejected order with accession [id number]. Performed By: #### 0 0071 ####[facility] Urea nitrogen mass conc 10 mg/dL Normal 7-25 [facility] Comment on above: Order Comment: This order is a replacement of the rejected order with accession [id number]. Performed By: #### 0 0071 ####[facility] CBC COMPLETE BLOOD COUNTon 0 12-04-2017 Erythrocyte distribution width Auto Ratio (RBC) 12.0 % Normal 11.5-15.0 [facility] Comment on above: Performed By: #### 5 0608 ####[facility] Hematocrit Auto Volume Fraction (Bld) 38.1 % Normal 36.0-45.0 [facility] Comment on above: Performed By: #### 5 0608 ####[facility] Hemoglobin mass conc (Bld) 12.9 g/dL Normal 12.0-15.0 [facility] Comment on above: Performed By: #### 5 0608 ####[facility] MCH Auto Entitic mass (RBC) 31.8 pg Normal 27.0-33.0 [facility] Comment on above: Performed By: #### 5 0608 ####[facility] MCHC Auto mass conc (RBC) 33.9 g/dL Normal 32.0-35.0 [facility] Comment on above: Performed By: #### 5 0608 ####[facility] [facility].[address] MCV Auto Entitic volume (RBC) 93.8 fL Normal 82.0-98.0 [facility] Comment on above: Performed By: #### 5 0608 ####[facility] Nucleated RBC/100 WBC Ratio (Bld) 0 % Normal 0-0 [facility] Comment on above: Performed By: #### 5 0608 ####[address] [address] PLAT CNT 325 10*3/uL Normal 150-400 [facility] Comment on above: Performed By: #### 5 0608 ####[facility] RBC Auto #/vol (Bld) 4.06 10*6/uL Normal 3.80-5.00 [facility] Comment on above: Performed By: #### 5 0608 ####[facility] [facility].[address] WBC Auto #/vol (Bld) 11.78 10*3/uL High 4.00-10.60 [facility] Comment on above: Performed By: #### 5 0608 ####[address] PROTHROMBIN TIMEon 8 INR Coag RelTime (PPP) 1.00 {INR} Normal 0.91-1.16 [facility] Comment on above: Result Comment: [facility] P RECOMMENDED INR FOR WARFARIN THERAPY CONDITION INRPROPHYLAXIS OF VENOUS THROMBOSIS 2-3(HIGH-RISK SURGERY)TREATMENT OF VENOUS THROMBOSIS 2-3TREATMENT OF PULMONARY EMBOLISM 2-3PREVENTION OF SYSTEMIC EMBOLISM: 2-3 ACUTE MYOCARDIAL INFARCTION TISSUE HEART VALVES VALVULAR HEART DISEASE ATRIAL FIBRILLATION RECURRENT SYSTEMIC EMBOLISMMECHANICAL HEART VALVE 2.5-3.5 FROM: ORAL ANTICOAGULANTS. MECHANISM OF ACTION, CLINICALEFFECTIVENESS, AND OPTIMAL THERAPEUTIC RANGE. [id number]-246S. Performed By: #### 5 6101 ####[facility] [facility].[address] Prothrombin time (PT) Coag time (PPP) 13.2 s Normal 12.3-14.8 [facility] Comment on above: Result Comment: ALL RESULTS MUST BE INTERPRETED WITH RESPECT TO BLOOD DRAWING ARTIFACTOR DILUTION ERROR OF ANTICOAGULANT AT THE TIME OF SAMPLING. Performed By: #### 5 6101 ####[facility] [facility] [address], [facility] TYPE AND SCREENon 12-04-2017 ABO INTERPRETATION A Normal [facility] Comment on above: Performed By: #### 6 2586 ####[address] [place] [address] [facility].[address] ANTIBODY SCREEN Negative Normal [facility] Comment on above: Performed By: #### 6 2586 ####[facility] [facility] [address], [facility] RH INTERPRETATION Positive Normal [facility] Comment on above: Performed By: #### 6 2586 ####[place] [address] Vital Signs Date Time Vital Sign Value Performing Clinician Facility 04-12-2024 11:58-0400 Body height 163.8 cm Ben Rhodes MD Work Phone: [facility] 04-12-2024 11:58-0400 Body mass index (BMI) [Ratio] 30.42 kg/m2 Ben Rhodes MD Work Phone: [facility] 04-12-2024 11:58-0400 Body weight 81.65 kg Ben Rhodes MD Work Phone: [facility] 04-12-2024 11:58-0400 Diastolic blood pressure 83 mm[Hg] Ben Rhodes MD Work Phone: [facility] 04-12-2024 11:58-0400 Heart rate 59 /min Ben Rhodes MD Work Phone: [facility] 04-12-2024 11:58-0400 Systolic blood pressure 123 mm[Hg] Ben Rhodes MD Work Phone: [facility] 09-24-2023 13:18-0400 Body height 163.83 cm [facility] 09-24-2023 13:18-0400 Body mass index (BMI) [Ratio] 31.4 kg/m2 [facility] 09-24-2023 13:18-0400 Body temperature 99.2 [degF] [facility] 09-24-2023 13:18-0400 Body weight 84.48 kg [facility] 09-24-2023 13:18-0400 Heart rate 88 /min [facility] 09-24-2023 13:18-0400 Respiratory rate 18 /min [facility] 09-24-2023 13:18-0400 SaO2% (BldA) [Mass fraction] 99 % [facility] 05-31-2021 11:25-0500 Body height 163.83 cm Brigitte Bradley Other [facility] Other 05-31-2021 11:25-0500 Body mass index (BMI) [Ratio] 31.16 kg/m2 Brigitte Bradley Other [facility] Other 05-31-2021 11:25-0500 Body temperature 98.4 [degF] Brigitte Bradley Other [facility] Other 05-31-2021 11:25-0500 Body weight 83.64 kg Brigitte Bradley Other [facility] Other 05-31-2021 11:25-0500 Diastolic blood pressure 108 mm[Hg] Brigitte Bradley Other [facility] Other 05-31-2021 11:25-0500 Respiratory rate 18 /min Brigitte Bradley Other [facility] Other 05-31-2021 11:25-0500 SaO2% (BldA) [Mass fraction] 97 % Brigitte Bradley Other [facility] Other 05-31-2021 11:25-0500 Systolic blood pressure 149 mm[Hg] Brigitte Bradley Other [facility] Other Encounters Encounter Date Encounter Type Care Provider Facility Start: 04-12-2024 End: 04-12-2024 Bamboo flowshusam Rhodes MD Work Phone: [facility] Start: 04-12-2024 End: 04-12-2024 Bamboo flowsheet Ben Rhodes MD Work Phone: [facility] Start: 04-12-2024 End: 04-12-2024 ambulatory BEN RHODES Not Available Start: 04-12-2024 End: 04-12-2024 Office outpatient visit 25 minutes Ben Rhodes MD Work Phone: [facility] Comment on above: Epilepsy undetermine d as to focal or generalized (CMS/HCC) (Primary Dx); ELICEO (obstructive sleep apnea); Migraine without aura, not intractable, without status migrainosus (CMS/HCC); Cervical paraspinal muscle spasm Start: 11-17-2023 End: 11-17-2023 ambulatory BEN RHODES Not Available Start: 09-24-2023 End: 09-24-[address] [facility] Work Phone: Start: 09-24-2023 End: 09-24-2023 Patient encounter procedure [facility] Work Phone: Start: 12-19-2021 End: 12-19-[address] DUANE BECERRA Facility:[facility] Start: 10-04-2021 End: 10-04-[address] DUANE BECERRA Facility:[facility] Start: 07-30-2021 End: 07-30-[address] АНДРЕЙ PEREZ Facility:[facility] Start: 05-31-2021 End: 05-31-2021 ambulatory Brigitte Bradley Other [facility] Other Start: 05-31-2021 Office outpatient vi sit 15 minutes Brigitte Bradley [facility] Start: 12-27-2017 End: 01-27-2018 Patient encounter Leticia Davis Facility:[facility] Start: 12-17-2017 End: 12-27-2017 Patient encounter Leticia Davis Facility:[facility] Start: 12-07-2017 End: 12-08-2017 Patient encounter ABDULAZIM HUMBLE Facility:[facility] Start: 12-04-2017 End: 12-04-2017 Emergency department patient visit FRANCIE GUADALUPE Facility:[facility] Procedures Date Procedure Procedure Detail Performing Clinician Start: 09-24-2023 Quick Strep (POC) Start: 12-07-2017 ANESTH LOWER ARM SURGERY SUPA MANTILLA Start: 12-07-2017 REPAIR FINGER/HAND TENDON ABDULAZIM HUMBLE Start: 12-07-2017 REPAIR OF DIGIT NERVE A BDULAZIM HUMBLE Plan of Treatment Date Care Activity Detail Author Start: 07-19-2024 End: 07-19-2024 Patient encounter procedure 07/19/2024 11:30 AM EST Office Visit [facility] [address] [facility] [address] [place] [address] Ben Rhodes MD [address] [facility] [address] [place] [address] [facility] Start: 02-28-2024 Influenza vaccination Influenza Vacc ine (#1) [facility] Start: 2023 Screening for malign ant neoplasm of breast Mammogram [facility] Start: 09-25-2013 Screening for malign ant neoplasm of cervix [facility] Start: 09-25-2004 Screening for malign ant neoplasm of cervix Pap Smear [facility] Payers Date Payer Category [facility] [id number] 2022 Unknown [id number] 2020 Private Health Insurance [facility] [id number] 1985 Unknown [id number] 1983 Unknown [id number] 1983 Unknown [id number] 1983 Unknown [id number] 1983 Unknown [id number] 1959 Unknown [id number] Self-pay Self Pay [id number] Unknown [id number] Unknown [employer] [id number] Social History Date Type Detail Facility Unknown if ever smoked [facility] Other Start: 01-01-2023 Sex Assigned At N [facility] Other Start: 12-22-2016 End: 11-20-2022 Tobacco smoking status DEIS Never smoked tobacco (finding) [facility] Start: 1985 Sex Assigned At Female [facility] Start: 11-20-2022 Tobacco use and exposure Smokeless tobacco non-user [facility] Start: 01-01-2023 Alcoholic beverage intake Lifetime non-drinker (finding) [facility] Start: 01-01-2023 History of Social function [facility] Start: 01-01-2023 Alcohol Comment caffeine 1-2 c ups per day [facility] Start: 04-11-2024 Gender identity Identifies as female gender (finding) [facility] Start: 04-11-2024 Sexual orientation Heterosexual (ovi josemanuel) [facility] NEGATED: Highlighted rowStart: NINF History of tobacco use Passive smoker [facility] History of Present illness Narrative 04-12-2024 Ben Rhodes MD - 04/12/2024 11:30 AM EDTMwayne Rhodes MD - 04/12/2024 11:30 AM EDTMwayne Rhodes MD - 04/12/2024 11:30 AM EDTMwayne Rhodes MD - 04/12/2024 11:30 AM EDTMwayne Rhodes MD - 04/12/2024 11:30 AM EDT Note Date & Type Note Facility 04-12-2024 History of Presen t illness Narrative Associated Problem(s): Epilepsy undetermined as to focal or generalized (CMS/HCC) Driving - may continue. WWE - on MVI. (Continue current regimen.) OXC, AST ALT q Mar. Electrolytes q Sep. Associated Problem(s): ELICEO (obstructive sleep apnea) Pt still still has not received BiPAP machine. Call our MSC rep, see what's going on. Dowload 1 mo after received, then before appt. Associated Problem(s): Migraine without aura, not intractable, without status migrainosus (CMS/HCC) Change gaby to riza. If still not tolerated, consider Trudhesa. Associated Problem(s): Cervical paraspinal muscle spasm (Continue home PT, Mg.) Images from the original note were not included. Outpatient Progress Note Patient: Bettina Dejesus Dept: Neurology : 1985 Appt Date: 04/12/2024 Prev Appt: 11/17/2023 Chief Complaint Patient presents with Migraine Sleep Apnea Assessment and Plan - Assessment & Plan Epilepsy undetermined as to focal or generalized (CMS/HCC) Driving - may continue. WWE - on MVI. (Continue current regimen.) OXC, AST ALT q Mar. Electrolytes q Sep. ELICEO (obstructive sleep apnea) Pt still still has not received BiPAP machine. Call our [facility] rep, see what's going on. Dowload 1 mo after received, then before appt. Migraine without aura, not intractable, without status migrainosus (CMS/HCC) Change gaby to riza. If still not tolerated, consider Trudhesa. Cervical paraspinal muscle spasm (Continue home PT, Mg.) No orders of the defined types were placed in this encounter. Follow-Up - Follow up 3 mo (assuming PAP, then 6 mo. History of Present Illness, Associated Treatments and Results - Dx EPILEPSY Tx OXC gen 300 q12 [14.9, was 14.9, 9.3..12] + MVI (for folate) AEs denies somn, diplopia Hx Last conv sz - summer 2012 (missed meds). Aurae - none recently. Failed TPM 100 (eff, but metallic taste, paresthesiae) Onset age 14 Semeiology Aura: d j vu -> piloerection -> GTC, mild; generally very short; staring spells and arm/leg. Jerks also present. Aetiology fall, LoC in gym class Trigger Preg none EEG (09/2012, [facility]) - nl Amb EEG (09/2012, [facility]) - no events; sharp wave activity T8 & P7 (!) VEEG FRITZ MR (11/2014, [facility], epilepsy protocol c/s 3T) - nl PET SPECT Imaging Testing Surgery Born - at term , labor and delivery - normal Congenital anomalies - absent complications - absent Meningitis/encephalitis - absent Head trauma - single concussion without LoC Structural lesions - absent Febrile seizures - none FHx epilepsy - present - maternal 1st cousin, since FHx febrile sz - absent Dx ELICEO / SWSS Tx BiPAP ordered but still not received Aes Hx ELICEO - Download - none recent. Use - unknown. Mask - prev mask felt heavy . PAP clearly improves sleep and daytime wakefulness. Great difficulty exhaling against pressure. 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 Failed CPAP (unable to exhale) Semeiol Snoring, apnoeas, nocturnal awakenings. Mouth dry AM. Unrested AM and all day. Weight difficult to control. Circad In bed 2230. Out of bed 0530. Occ naps 20 min. Noct oxim (10/2021) - ANNABELLA=20 PSG (home) - ANTHONY=7, supine=8 vs 4 PAPT MSLT MWT Imaging Testing Surgery Dx MIGRAINES . MYOFASCIITIS . (ANXIETY) Tx Mg 250 bid (+ metoprolol ER 100 --HTN) (+ buspirone --anx) + prn gaby AEs Hx Freq (> 4 h) - ~1 d/mo. mo, with recent migraine triggered by smoke. 4-6 d/mo. ... Orig freq - 2-3 d/mo. Neck improved with home PT. Imaging Testing Surgery Failed (TPM) ... gaby (nausea preventing use) Onset 1/y until after COVID Aura none Sx dull pressure pulsating Loc frontal temporal L>R Assoc nausea vomiting photophobia phonophobia osmophobia dizziness blurred vision phosphenes fortifications scotomata Trigger barometric menses sleep deprivation stress nitrites Compl dysphasia Clust none FHx ?father, 15M Physical Exam - General appearance, mentation, extraocular movements, facial strength and movement, hearing, upper and lower extremity strength and tone, sensation to gross testing, coordination, and gait are normal or at baseline unless noted below. HEENT - ___, unchanged: Tongue large ... Mallampati III, orig: ___ MS - ___, unchanged: ___, orig: ___ CNN - ___, unchanged: Nystagmus variable 0\-1+, orig: ___ Motor - ___, unchanged: ___, orig: ___ Sens - ___, unchanged: ___, orig: ___ Reflex - ___, unchanged: ___, orig: ___ Coord - ___, unchanged: Romberg 0, orig: ___ Gait - ___, unchanged: Tandem nl, orig: ___ Vestib - ___, unchanged: ___, orig: ___ MSK - Spasm - SCM mod Tr C mild, unchanged: ___, orig: ___ Other - ___, unchanged: ___, orig: ___ Vital Signs - Visit Vitals BP 123/83 Pulse 59 Ht 5' 4.5 Wt 180 lb BMI 30.42 kg/m Smoking Status Never BSA 1.93 m Review of Systems - . Const: Denies appetite change, fever, chills. Allergy: Denies medication reaction. Ocular: Denies visual acuity change. ENT: Denies hearing change. Endoc: Denies weight loss. Resp: Denies dyspnoea, wheezing. Cardiac: Denies angina, palpitations. GI: Denies nausea, vomiting. Haem: Denies bleeding. : Denies incontinence. MSK: Denies arthralgias, joint oedema. Derm: Denies rash, hair loss. Neuro: Denies ataxia, tremor. Also see HPI for elements of ROS documented therein and for details of positive findings, which shall supersede the foregoing. PMH, PSH, Allergies, FH, SH - Past Medical History: Diagnosis Date Epilepsy (CMS/HCC) Verruca Past Surgical History: Procedure Laterality Date FINGER SURGERY 11/2017 index GALL BLADDER TENDON REPAIR Right No Known Allergies Family History Problem Relation Name Age of Onset Mental illness Mother Cancer Maternal Grandmother Diabetes Maternal Grandmother Hypertension Maternal Grandmother Diabetes Maternal Grandfather Cancer Maternal Grandfather Outpatient Encounter Medications as of 04/12/2024 Medication Sig Dispense Refill [DISCONTINUED] metoprolol succinate XL (Toprol-XL) 25 MG 24 hr tablet TAKE 1 TABLET BY MOUTH IN THE MORNING 30 tablet 0 busPIRone (Buspar) 5 MG tablet every 12 (twelve) hours. magnesium oxide 500 MG tablet Daily metoprolol succinate XL (Toprol-XL) 100 MG 24 hr tablet Take by mouth Do not crush or chew. ondansetron ODT (Zofran-ODT) 4 MG disintegrating tablet Take 4 mg by mouth every 8 (eight) hours if needed. OXcarbazepine (Trileptal) 300 MG tablet Take 1 tablet (300 mg) by mouth in the morning and 1 tablet (300 mg) before bedtime. 60 tablet 5 pantoprazole (ProtoNix) 40 MG EC tablet Take 40 mg by mouth in the morning. Take before meals. Do not crush, chew, or split.. SUMAtriptan (Imitrex) 100 MG tablet Take 100 mg by mouth 1 (one) time if needed. No facility-administered encounter medications on file as of 04/12/2024. Ben Rhodes M.D. [facility] Neurology ? [address] [facility] [address] ? [place], [place] [address] ? ? fax Neurology ? Clinical Neurophysiology ? Epilepsy ? Sleep Disorders ? Clinical Informatics documented in this encounter [facility] Evaluation note 05-31-2021 Note Date & Type Note Facility 05-31-2021 Evaluation note Encounter Date Diagnosis Assessment Notes May, Acute nonintractable headache, unspecified headache type (ICD-10 - R51.9) Drink plenty of fluids, get plenty of rest. Take the Zofran for nausea. Once her nausea subsides take 50 mg of Benadryl and go to bed. You may take Tylenol for any lingering headache. Follow-up with your family doctor if no improvement in 1 or 2 days [facility] Other Evaluation note Note Date & Type Note Facility Evaluation note No assessment information [facility] Work Phone: Evaluation note Note Date & Type Note Facility Evaluation note Diagnosis Cervical paraspinal muscle spasm- Primary Spasm of muscle Trigger point of neck ELICEO (obstructive sleep apnea) Obstructive sleep apnea (adult) (pediatric) Migraine without aura, not intractable, without status migrainosus (CMS/HCC) Epilepsy undetermined as to focal or generalized (CMS/HCC) Epilepsy undetermined as to focal or generalized (CMS/HCC)- Primary Migraine without aura, not intractable, without status migrainosus (CMS/HCC) ELICEO (obstructive sleep apnea) Obstructive sleep apnea (adult) (pediatric) Cervical paraspinal muscle spasm Spasm of muscle Epilepsy undetermined as to focal or generalized (CMS/HCC)- Primary ELICEO (obstructive sleep apnea) Obstructive sleep apnea (adult) (pediatric) Epilepsy undetermined as to focal or generalized (CMS/HCC)- Primary ELICEO (obstructive sleep apnea) Obstructive sleep apnea (adult) (pediatric) Migraine without aura, not intractable, without status migrainosus (CMS/HCC) Cervical paraspinal muscle spasm Spasm of muscle documented in this encounter [facility] History general Narrative - Reported Note Date & Type Note Facility History general Narrative - Reported Type Medical History Seizure Disorder Surgical History Right Tendon Attachment 2017 [facility] Other Summary Purpose Family History Relationship Condition Age at Onset Recorded Date/T fermin father Unknown Not Specified Multiple sclerosis Unknown Advance Directives Advance Directive Response Recorded Date/ Time Advance Directives No December 27 9 4:43pm Chief Complaint and Reason for Visit Chief Complaint sore throat, congest ion Additional Source Comments INFORMATION SOURCE (unrecogn ized section and content) DATE CREATED AUTHOR 01/27/2018 [facility] DATE CREATED AUTHOR AUTHOR'S ORGANIZ ATION 12/23/2021 [facility] DATE CREATED AUTHOR AUTHOR'S ORGANIZ ATION 04/14/2024 [facility] EPIC REASON FOR VISIT (unrecogniz ed section and content) Reason Comments Migraine Sleep Apnea Care Teams (unrecognized sec tion and content) Team Status: Active Member Role Status Dates Duane Becerra DO Primary Care Provider Active Team Status: Inactive Member Role Status Dates Duane Becerra DO Primary Care Provider Active Start: September 24, 2023 End: September 24, 2023 Zenobia Vyas APRN Attending Provider Active Start: September 24, 2023 End: September 24, 2023 Psychiatric Np Relationship Specialty Start Date End Date Unallocated, [place] [address] PCP - General 03/12/23 Psychiatric Np Relationship Specialty Start Date End Date Unallocated, MD Dahiana Blount [place] [address] PCP - General 03/12/23 Goals (unrecognized section and content) Goals may be documented in a n alternate section FOR RECORDS PERTAINING TO PATIENTS WHO ARE OR HAVE BEEN ENROLLED IN A CHEMICAL DEPENDENCY/SUBSTANCEABUSE PROGRAM, SOME INFORMATION MAY BE OMITTED. This clinical summary was aggregated from multiple sources. Caution should be exercised in using it in the provision of clinical care. This summary normalizes information from multiple sources, and as a consequence, information in this document may materially change the coding, format and clinical context of patient data. In addition, data may be omitted in some cases. CLINICAL DECISIONS SHOULD BE BASED ON THE PRIMARY CLINICAL RECORDS. [facility] [employer] [facility] provides no warranty or guarantee of the accuracy or completeness of information in this document.
[2024-05-24 10:47] LABS: Basophils Percent Auto 0.4 % (0.2-2.0); Eosinophils Absolute Auto 0.1 10^3/uL (0.0-0.7); Hematocrit 38.7 % (36.0-48.0); Hemoglobin 13.1 g/dL (12.0-16.0); Immature Granulocytes Abs Auto 0.02 10^3/uL (0.00-0.03); Immature Granulocytes Pct Auto 0.4 % (0.0-0.5); Mean Corpuscular HGB Conc 33.9 g/dL (29.9-35.2); Mean Corpuscular Hemoglobin 32.7 pg (26.7-34.0); Mean Corpuscular Volume 96.5 fL (81.0-99.0); Mean Platelet Volume 8.9 fL (9.5-13.5); Monocytes Absolute Auto 0.4 10^3/uL (0.3-0.8); Monocytes Percent Auto 7.5 % (1.7-12.0); Neutrophils Absolute Auto 3.1 10^3/uL (1.4-6.5); Neutrophils Percent Auto 54.7 % (43.0-75.0); Platelet Count 322 10^3/uL (150-450); Red Blood Count 4.01 10^6/uL (4.20-5.40); Red Cell Distribution Width 11.8 % (11.0-15.0); White Blood Count 5.6 10^3/uL (4.0-11.0)
[2024-05-24 11:36] LABS: Estimated Average Glucose 117 mg/dL; Glycohemoglobin A1C 5.7 % (4.5-6.2)
[2024-05-24 11:44] LABS: Free T4 0.69 ng/dL (0.76-1.46)
[2024-05-24 11:55] LABS: Alanine Aminotransferase 29 U/L (14-59); Albumin Globulin Ratio 1.2; Albumin Level 3.7 g/dL (3.4-5.0); Alkaline Phosphatase 46 U/L (46-116); Anion Gap 14.5; Aspartate Amino Transferase 17 U/L (15-37); BUN Creatinine Ratio 11.8; Bilirubin Total 0.4 mg/dL (0.2-1.0); Calcium 8.6 mg/dL (8.5-10.1); Carbon Dioxide 25.8 mmol/L (21.0-32.0); Chloride 104 mmol/L (98-107); Estimated GFR (African America >60 (>=60 mL/min/1.73m^2); Estimated GFR (Non-African Ame >60 (>=60 mL/min/1.73m^2); Free T3 2.04 pg/mL (2.18-3.98); Globulin 3.2 g/dL; Glucose 98 mg/dL (74-106); Magnesium 2.1 mg/dL (1.8-2.4); Potassium 4.3 mmol/L (3.5-5.1); Sodium 140 mmol/L (136-145); Thyroid Stimulating Hormone 1.727 uIU/mL (0.358-3.740); Total Protein 6.9 g/dL (6.4-8.2)
[2024-05-25 07:09] LABS: Vitamin B12 353 pg/mL (232-1245)
== END 2024-05-24 10:10 | disposition home or self-care (01) ==
LOC: LAB 10:12
PROVIDERS: PCP Family Medicine; Visit Provider Family Medicine
DX: Z00.00 Encounter for general adult medical examination without abnormal findings (principal)
CPT/HCPCS: 36415; 80053; 82306; 82607; 82746; 83036; 83735; 84439; 84443; 84481; 85025

== ENCOUNTER 2024-12-27 09:43 | Outpatient (OUT) | payer OTHER, SELFPAY ==
--- OUTSIDE RECORDS SUMMARY | 2024-12-13 10:30 | XMS_ITS | Encounter Summary ---
Author Organization [facility] Address [address] [place] [address] Care Team Providers Care Assistant Merchandiser Name Role Phone Unallocated, Noms Provider Primary Care Provi isaiah Reason for Visit * Reason Comments Seizures Encounter Details Date Type Department Care Team ([facility] st Contact Info) Description 12/13/2024 10:30 AM EDT Office Visit [facility] [address] [facility] [address] [place] [phone] Tho Rhodes MD [address] [facility] [address] [place] [address] Epilepsy undetermined as to focal or generalized (HCC) (Primary Dx); ELICEO (obstructive sleep apnea); Claustrophobia ; Insomnia, psychophysiological; Migraine without aura, not intractable, without status migrainosus ; Cervical paraspinal muscle spasm Social History Tobacco Use Types Packs/Day Years Used Date Smoking Tobacco: Former Cigarettes 0.3 10 0 06/29/2009 - 06/29/2019 Passive Smoke Exposure: Never Smokeless Tobacco: Never Alcohol Use Standard Drinks/Week Comments Yes 1 (1 standard drink = 0.6 oz pur e alcohol) caffeine 1-2 cups per day Comments No Sex and Gender Information Value Date Recorded Sex Assigned at Female 04/11/2024 11:34 AM EDT Legal Sex Female 7:25 PM EDT Gender Identity Female 04/11/2024 11:34 AM EDT Sexual Orientation Straight 04/11/2024 11 :34 AM EDT documented as of this encounter Last Filed Vital Signs Vital Sign Reading Time Taken Comments Blood Pressure - - Pulse - - Temperature - - Respiratory Rate - - Oxygen Saturation - - Inhaled Oxygen Concentration - - Weight 86.2 kg (190 lb) 12/13/2024 10:42 AM EDT Height 162.6 cm (5' 4 ) 12/13/2024 10:42 AM EDT Body Mass Index 32.61 12/13/2024 10:42 AM EDT documented in this encounter Progress Notes * Tho Rhodes MD - 12/13/2024 10:30 AM EDTAssociated Problem(s): Epilepsy undetermined as to focal or generalized (HCC) Driving - may continue. WWE - on MVI. (Continue current regimen.) Levels! None since 2022! OXC AST ALT q Apr. Electrolytes q October. Orders: OXcarbazepine (Trileptal) 300 MG tablet; Take 1 tablet (300 mg) by mouth in the morning and 1 tablet (300 mg) before bedtime. * Tho Rhodes MD - 12/13/2024 10:30 AM EDTAssociated Problem(s): ELICEO (obstructive sleep apnea) (Continue PAP.) Have DME confirm that machine is in BiPAP mode (download suggests yes, but pt not sure) Refit mask - probably Dreamwear FFM or similar. * Tho Rhodes MD - 12/13/2024 10:30 AM EDTAssociated Problem(s): Claustrophobia Add alprazolam 0.25, best taken ~1/2 h ahs. Orders: ALPRAZolam (Xanax) 0.25 MG tablet; Take 1 tab 30-45 min before PAP therapy. * Tho Rhodes MD - 12/13/2024 10:30 AM EDTAssociated Problem(s): Insomnia, psychophysiological Add melatonin ER. Consider trazodone or doxepin * Tho Rhodes MD - 12/13/2024 10:30 AM EDTAssociated Problem(s): Migraine without aura, not intractable, without status migrainosus (Continue current regimen.) * Tho Rhodes MD - 12/13/2024 10:30 AM EDTAssociated Problem(s): Cervical paraspinal muscle spasm (Continue current regimen, home PT.) * Tho Rhodes MD - 12/13/2024 10:30 AM EDT Images from the original note were not included. Outpatient Progress Note Patient: Bettina Dejesus Dept: Neurology : 1985 Appt Date: 12/13/2024 Prev Appt: 09/06/2024 Chief Complaint Patient presents with Seizures Appointment Note -- 3 mo Assessment and Plan - Assessment & Plan Epilepsy undetermined as to focal or generalized (HCC) Driving - may continue. WWE - on MVI. (Continue current regimen.) Levels! None since 2022! OXC AST ALT q Nov. Electrolytes q October. Orders: OXcarbazepine (Trileptal) 300 MG tablet; Take 1 tablet (300 mg) by mouth in the morning and 1 tablet (300 mg) before bedtime. ELICEO (obstructive sleep apnea) (Continue PAP.) Have DME confirm that machine is in BiPAP mode (download suggests yes, but pt not sure) Refit mask - probably Dreamwear FFM or similar. Claustrophobia Add alprazolam 0.25, best taken ~1/2 h ahs. Orders: ALPRAZolam (Xanax) 0.25 MG tablet; Take 1 tab 30-45 min before PAP therapy. Insomnia, psychophysiological Add melatonin ER. Consider trazodone or doxepin Migraine without aura, not intractable, without status migrainosus (Continue current regimen.) Cervical paraspinal muscle spasm (Continue current regimen, home PT.) Follow-Up - Follow up in about 4 weeks (around 01/10/2025), or HERBICIDE SPRAYER. History of Present Illness, Associated Treatments and Results - Dx EPILEPSY Tx OXC 300 q12 [not done, 14.9 was 14.9, 9.3..14.9] + MVI (for folate) AEs denies somn, diplopia Hx Last convulsive sz - summer 2012 (missed meds). None recently, even with poor sleep post 's . Briefly on bupropion, stopped, no sz occurred. Aurae - none recently. Failed TPM 100 (eff, but metallic taste, paresthesiae) Onset age 14 Semeiology Aura: d j vu -> piloerection -> GTC, mild; generally very short; staring spellsand arm/leg. Jerks also present. Aetiology fall, LoC [...] FHx febrile sz - absent Dx ELICEO . SWSS . INSOMNIA . CLAUSTROPHOBIA Tx AutoBiPAP @ 12-12 Aes Hx ELICEO - Download - reviewed. Use - poor. Mask - multiple masks tried, none working well as yet. PAP clearly improves sleep and daytime wakefulness. Main difficulty remains exhaling against pressure.Mouth opening, needs FFM. 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 Sleep had also been poor due to stress of 's . Difficulty staying asleep. Failed CPAP (unable to exhale), Lunesta (ineff) Semeiol Snoring, apnoeas, nocturnal awakenings. Mouth dry [...] 100 --HTN) (+ buspirone --anx) + prn riza AEs Hx Freq (> 4 h) - ~1 d/mo. Was 4-6 d/mo. ... Orig freq - 2-3 [...] to gross testing, coordination, and gait are normalor at baseline unless noted below. HEENT - [...] orig: ___ Vital Signs - Visit Vitals Ht 5' 4 Wt 190 lb BMI 32.61 kg/m?? OB Status Having periods Smoking Status Former BSA 1.97 m?? Review of Systems - . Const: Denies [...] SH - Past Medical History: Diagnosis Date Bacterial vaginosis 2018 Breast mass 2013 Epilepsy (HCC) Genital warts 2009 Hypertension 2022 Verruca Past Surgical History: Procedure Laterality Date ABDOMINAL SURGERY BREAST BIOPSY 2013 CHOLECYSTECTOMY CONDYLOMA EXCISION/FULGURATION 2010 FINGER SURGERY 11/2017 index GALL BLADDER TENDON REPAIR Right VAGINAL DELIVERY x2 No Known Allergies Family History Problem Relation Name Age of Onset Mental illness Mother Multiple sclerosis Mother Multiple sclerosis Sister Cancer Maternal Grandmother Amaya Diabetes Maternal Grandmother Amaya Hypertension Maternal Grandmother Amaya Diabetes Maternal Grandfather Greg Cancer Maternal Grandfather Greg Outpatient Encounter Medications as of 12/13/2024 Medication Sig Dispense Refill busPIRone (Buspar) 5 MG tablet every 12 (twelve) hours. magnesium oxide 500 MG tablet Daily metoprolol succinate XL (Toprol-XL) 100 MG 24 hr tablet Take by mouth Do not crush or chew. ondansetron ODT (Zofran-ODT) 4 MG disintegrating tablet Take 4 mg by mouth every 8 (eight) hours ifneeded. OXcarbazepine (Trileptal) 300 MG tablet Take 1 tablet (300 mg) by mouth in the morning and 1 tablet(300 mg) before bedtime. 180 tablet 3 pantoprazole (ProtoNix) 40 MG EC tablet Take 40 mg by mouth in the morning. Take before meals. Do not crush, chew, or split.. SUMAtriptan (Imitrex) 100 MG tablet Take 100 mg by mouth 1 (one) time if needed for migraine No facility-administered encounter medications on file as of 12/13/2024. Tho Rhodes M.D. [facility] ? [address] ? [place], [place] [address] ? ? fax Neurology ? Clinical Neurophysiology ? Epilepsy ? Sleep Disorders ? Clinical Informatics documented in this encounter Plan of Treatment Upcoming Encounters Date Type Department Care Team (Late st Contact Info) Description 01/31/2025 12:00 PM EDT Office Visit [facility] [address] [place] [address] Chasity Roberson, HERBICIDE SPRAYER [address], [address] [place] [address] documented as of this encounter Visit Diagnoses Diagnosis Epilepsy undetermined as to focal or generalized (HCC)- Primary ELICEO (obstructive sleep apnea) Obstructive sleep apnea (adult) (pediatric) Claustrophobia Other isolated or specific phobias Insomnia, psychophysiological Migraine without aura, not intractable, without status migrainosus Cervical paraspinal muscle spasm Spasm of muscle documented in this encounter Care Teams Assistant Merchandiser Relationship Specialty Start Date End Date Unallocated, Sosa Carlos MD [address] [place] [address] PCP - General 03/12/23 documented as of this encounter
--- OUTSIDE RECORDS SUMMARY | 2024-12-27 09:47 | XMS_ITS | Encounter Summary ---
Author Organization [facility] Address [address] [place] [address] Care Team Providers Care Sighter Name Role Phone Unallocated, Noms Provider Primary Care Provi isaiah Encounter Details Date Type Department Care Team (Late Contact Info) Description 12/13/2024 Bamboo flowsheet [facility] [address] [place] [address] Tho Rhodes MD [address] [facility] [address] [place], [place] [id number] Social History Tobacco Use Types Packs/Day Years [...] AM EDT documented as of this encounter Plan of Treatment Upcoming Encounters Date Type Department Care Team (Late Contact Info) Description 01/31/2025 12:00 PM EDT Office Visit [facility] [address] [facility] [address] [place] [phone] Chasity Roberson, MORNING SHOW PRODUCER [address], [facility] [address] [place] [phone] documented as of this encounter Visit Diagnoses Not on filedocumented in this encounter Care Teams Sighter Relationship Specialty Start Date End Date Unallocated, Noms Provider, [address] [place] [address] PCP - General 03/12/23 documented as of this encounter
--- OUTSIDE RECORDS SUMMARY | 2024-12-27 09:47 | XMS_ITS | Clinical Summary ---
Author Organization [facility] Address [address] [place] [address] Care Team Providers Care Biodiesel Engine Specialist Name Role Phone Unallocated, Noms Provider Primary Care Provi isaiah Allergies No known active allergies Medications ondansetron ODT (Zofran-ODT) 4 MG disintegrating tablet Take 4 mg by mouth every 8 (eight) hours if needed. 2 Active busPIRone (Buspar) 5 MG tablet every 12 (twelve) hours. 3 Active magnesium oxide 500 MG tablet Daily 4 Active metoprolol succinate XL (Toprol-XL) 100 MG 24 hr tablet Take by mouth Do not crush or chew. Active pantoprazole (ProtoNix) 40 MG EC tablet Take 40 mg by mouth in the morning. Take before meals. Do not crush, chew, or split.. Active SUMAtriptan (Imitrex) 100 MG tablet Take 100 mg by mouth 1 (one) time if needed for migraine Active OXcarbazepine (Trileptal) 300 MG tabletIndications: Epilepsy undetermined as to focal or generalized (HCC) Take 1 tablet (300 mg) by mouth in the morning and 1 tablet (300 mg) before bedtime. 180 tablet 3 5 026 Active ALPRAZolam (Xanax) 0.25 MG tabletIndications: Claustrophobia Take 1 tab 30-45 min before PAP therapy. 30 tablet 3 5 Active OXcarbazepine (Trileptal) 300 MG tabletIndications: Epilepsy undetermined as to focal or generalized (HCC) Take 1 tablet (300 mg) by mouth in the morning and 1 tablet (300 mg) before bedtime. 180 tablet 3 025 Discontin ued(Reord er) Active Problems Problem Noted Date Diagnosed Date Claustrophobia 12/13/2024 Assessment & Plan (12/13/2024 6:11 PM EDT): Add alprazolam 0.25, best taken ~1/2 h ahs. Orders: ALPRAZolam (Xanax) 0.25 MG tablet; Take 1 tab 30-45 min before PAP therapy. Insomnia, psychophysiological 07/19/2024 Assessment & Plan (12/13/2024 6:11 PM EDT): Add melatonin ER. Consider trazodone or doxepin Assessment & Plan (09/06/2024 11:45 AM EDT): Add SL Melatonin. Consider trazodone or doxepin Assessment & Plan (07/19/2024 5:32 PM EST): Add eszopiclone 1 hs. Plan on 2-3 mo, then prn. Orders: eszopiclone (Lunesta) 1 MG tablet; Take 1 tablet (1 mg) by mouth at bedtime Cervical paraspinal muscle spasm 02/03/2023 Assessment & Plan (12/13/2024 6:11 PM EDT): (Continue current regimen, home PT.) Assessment & Plan (09/06/2024 11:45 AM EDT): (Continue current regimen.) Assessment & Plan (07/19/2024 5:32 PM EST): Add rotational stretches as demonstrated. May have Rx for PT if current approaches prove insufficient. Assessment & Plan (04/12/2024 12:55 PM EDT): (Continue home PT, Mg.) Assessment & Plan (11/17/2023 4:23 PM EDT): (Continue home PT.) Assessment & Plan (04/07/2023 11:18 AM EDT): (Continue home PT.) Assessment & Plan (02/03/2023 12:16 PM EDT): PT. Trigger point of neck 02/03/2023 Assessment & Plan (02/03/2023 12:16 PM EDT): Consider trig pt injections. ELICEO (obstructive sleep apnea) 02/01/2023 Overview (02/01/2023): --- likely, given noct hypox. Assessment & Plan (12/13/2024 6:11 PM EDT): (Continue PAP.) Have DME confirm that machine is in BiPAP mode (download suggests yes, but pt not sure) Refit mask - probably Dreamwear FFM or similar. Assessment & Plan (09/06/2024 11:45 AM EDT): Pt still has not received BiPAP machine. She states she can not afford the machine currently. Risk of untreated ELICEO discussed Dowload 1 mo after received, then before appt. Assessment & Plan (07/19/2024 5:32 PM EST): Pt still still still has not received BiPAP machine. Call our [facility] rep, see what's going on. Asked pt to call [facility] also, rather then just getting text messages. Dowload 1 mo after received, then before appt. Assessment & Plan (04/12/2024 12:55 PM EDT): Pt still still has not received BiPAP machine. Call our [facility] rep, see what's going on. Dowload 1 mo after received, then before appt. Assessment & Plan (11/17/2023 4:22 PM EDT): Order AutoBiPAP @ 616. Download before appts. If new sleep study needed, proceed. Assessment & Plan (04/07/2023 11:17 AM EDT): Proceed with BiPAP as soon as available. Download 6 w after received, then before appt. Assessment & Plan (02/03/2023 12:13 PM EDT): Change CPAP to BiPAP @ 12/29 (if 3 not available, 12/30). Download before appts. Epilepsy undetermined as to focal or generalized 02/01/2023 Overview (02/01/2023): --- ?type. Focal features (marina vu) and gen features (myoclonic jerks, FHx). Assessment & Plan (12/13/2024 6:11 PM EDT): Driving - may continue. WWE - on MVI. (Continue current regimen.) Levels! None since 2022! OXC AST ALT q Nov. Electrolytes q October. Orders: OXcarbazepine (Trileptal) 300 MG tablet; Take 1 tablet (300 mg) by mouth in the morning and 1 tablet (300 mg) before bedtime. Assessment & Plan (09/06/2024 11:45 AM EDT): Driving - may continue. WWE - on MVI. (Continue current regimen.) OXC, AST ALT q Oct. Electrolytes q Sep. Orders: OXcarbazepine (Trileptal) 300 MG tablet; Take 1 tablet (300 mg) by mouth in the morning and 1 tablet (300 mg) before bedtime. Assessment & Plan (07/19/2024 5:32 PM EST): Driving - may continue. WWE - on MVI. (Continue current regimen.) OXC, AST ALT q Oct. Electrolytes q Sep Oct. Instructed pt to stop bupropion due to its strong seizure-triggering potential. Instr pt to call ordering doc to change med. Assessment & Plan (04/12/2024 12:55 PM EDT): Driving - may continue. WWE - on MVI. (Continue current regimen.) OXC, AST ALT q Oct. Electrolytes q Apr Oct. Assessment & Plan (11/17/2023 4:21 PM EDT): Driving - may continue. WWE - on MVI. (Continue current regimen.) OXC, AST ALT q Oct. Electrolytes q Apr Oct. Assessment & Plan (04/07/2023 11:18 AM EDT): Driving - may continue. WWE - on MVI. (Continue current regimen.) OXC, AST ALT q Oct. Electrolytes q Apr Oct. Assessment & Plan (02/03/2023 12:20 PM EDT): Driving - may continue. WWE - on MVI. (Continue current regimen.) OXC, AST ALT q Oct. Electrolytes q Apr Oct. Migraine without aura, not i ntractable, without status migrainosus 02/01/2023 Assessment & Plan (12/13/2024 6:11 PM EDT): (Continue current regimen.) Assessment & Plan (09/06/2024 11:45 AM EDT): (Continue current regimen.) Assessment & Plan (07/19/2024 5:32 PM EST): (Continue current regimen.) Assessment & Plan (04/12/2024 12:55 PM EDT): Change gaby to riza. If still not tolerated, consider Trudhesa. Assessment & Plan (11/17/2023 4:22 PM EDT): (Continue current regimen.) Assessment & Plan (04/07/2023 11:10 AM EDT): Change gaby to Trudhesa. Assessment & Plan (02/03/2023 12:15 PM EDT): Add metoprolol ER 35. Macroglossia 02/01/2023 Shift work sleep disorder 02/01/2023 Pharyngeal stenosis 02/01/2023 Encounters Date Type Department Care Team Description 12/13/2024 10:30 AM EDT Office Visit [facility] [address] [place] [phone] Tho Rhodes MD Epilepsy undetermined as to focal or generalized (HCC) (Primary Dx); ELICEO (obstructive sleep apnea); Claustrophobia ; Insomnia, psychophysiological; Migraine without aura, not intractable, without status migrainosus ; Cervical paraspinal muscle spasm 12/13/2024 Bamboo flowsheet [facility] [address] [place] [address] Tho Rhodes MD 12/13/2024 Travel 09/29/2024 11:00 AM EDT Ancillary Procedure [facility] [address] [place] [phone] Other screening mammogram 09/29/2024 Travel from Last 3 Months Family History Medical History Relation Name Comments Cancer Maternal Grandfather Greg Diabetes Maternal Grandfather Greg Cancer Maternal Grandmother Amaya Diabetes Maternal Grandmother Amaya Hypertension Maternal Grandmother Amaya Mental illness Mother Multiple sclerosis Mother Multiple sclerosis Sister Relation Name Status Comments Father Alive Maternal Grandfather Greg Maternal Grandmother Amaya Mother Alive Sister Social History Tobacco Use Types Packs/Day Years Used Date Smoking Tobacco: Former Cigarettes 0.3 10 0 06/29/2009 - 06/29/2019 Passive Smoke Exposure: Never Smokeless Tobacco: Never Tobacco Cessation:Counseling Given: Not Answered Alcohol Use Standard Drinks/Week Comments Yes 1 (1 standard drink = 0.6 oz pur e alcohol) caffeine 1-2 cups per day Comments No Sex and Gender Information Value Date Recorded Sex Assigned at Female 04/11/2024 11:34 AM EDT Legal Sex Female 7:25 PM EDT Gender Identity Female 04/11/2024 11:34 AM EDT Sexual Orientation Straight 04/11/2024 11 :34 AM EDT Last Filed Vital Signs Vital Sign Reading Time Taken Comments Blood Pressure 122/78 09/14/2024 12:52 PM EDT Pulse 68 07/19/2024 11:38 AM EST Temperature - - Respiratory Rate - - Oxygen Saturation - - Inhaled Oxygen Concentration - - Weight 86.2 kg (190 lb) 12/13/2024 10:42 AM EDT Height 162.6 cm (5' 4 ) 12/13/2024 10:42 AM EDT Body Mass Index 32.61 12/13/2024 10:42 AM EDT Plan of Treatment Upcoming Encounters Date Type Department Care Team (Late st Contact Info) Description 01/31/2025 12:00 PM EDT Office Visit [facility] [address] [place] [address] Chasity Roberson, TABLEAU ANALYST [address] [facility] [address] [place] [address] Health Maintenance Due Date Last Done Comments Pap Smear 09/25/2004 Influenza Vaccine (Season Ended) 2025 Mammogram 09/29/2025 09/29/2024 Cervical Cancer Screening 09/14/2029 HPV/Cotest 09/14/2029 09/14/2024 Procedures Procedure Name Priority Date/Time Associated Diagnosis Comments BI MAMMOGRAM SCREENING TOMOSYNTHESIS BILATERAL Routine 09/29/2024 11:05 AM EDT Other screening mammogram IGP, APT HPV,RFX 16/18,45 Routine 09/14/2024 12:00 AM EDT Cervical cancer screening Screening for HPV (human papillomavirus) from Last 3 Months or Most Recently Relevant to Health Maintenance Results * Bilateral screening mammogram with tomosynthesis (09/29/2024 11:05 AM EDT) Anatomical Region Laterality Modality Breast Bilateral Mammography 09/29/2024 1:51 PM EDT Impressions 09/29/2024 1:57 PM EDT Impression: No specific evidence of malignancy seen in either breast. BIRADS 2 - Benign Findings DENSITY: The breasts are heterogeneously dense, which may obscure small masses. FOLLOW-UP: Routine Screening Mammogram ELECTRONICALLY SIGNED BY: Felipe Waldrop M.D. Narrative 09/29/2024 1:57 PM EDT Examination: BI MAMMOGRAM SCREENING TOMOSYNTHESIS BILATERAL Clinical History: screen Technique: Screening digital mammography study of both breasts was performed with 2-D and 3-D tomosynthesis imaging. Study was compared to the diagnostic mammogram study of the breasts dated 09/04/2011, diagnostic mammogram study of the left breast dated 09/10/2011 and diagnostic mammogram study of the left breast dated 04/05/2012. Findings: There is no evidence of interval dominant spiculated mass, grouped microcalcifications, or skin thickening which would be suggestive of malignancy. Postprocedural clip is noted on the left inferomedially, similar to the prior diagnostic mammogram studies of the left breast. Procedure Note Felipe Waldrop MD - 09/29/2024 Examination: BI MAMMOGRAM SCREENING TOMOSYNTHESIS BILATERAL Clinical History: screen Technique: Screening digital mammography study of both breasts wasperformed with 2-D and 3-D tomosynthesis imaging. Study was compared tothe diagnostic mammogram study of the breasts dated 09/04/2011, diagnosticmammogram study of the left breast dated 09/10/2011 and diagnosticmammogram study of the left breast dated 04/05/2012. Findings: There is no evidence of interval dominant spiculated mass,grouped microcalcifications, or skin thickening which would be suggestiveof malignancy. Postprocedural clip is noted on the left inferomedially, similar to theprior diagnostic mammogram studies of the left breast. IMPRESSION: Impression: No specific evidence of malignancy seen in either breast. BIRADS 2 - Benign Findings DENSITY: The breasts are heterogeneously dense, which may obscure smallmasses. FOLLOW-UP: Routine Screening Mammogram ELECTRONICALLY SIGNED BY: Felipe Waldrop M.D. us Paul Cabral MD IMG BI PROCEDURES Final Result * IGP, APT HPV,RFX 16/18,45 (09/14/2024 12:00 AM EDT) Diagnosis: Comment [facility] Comment: NEGATIVE FOR INTRAEPITHELIAL LESION OR MALIGNANCY. FUNGAL ORGANISMS MORPHOLOGICALLY CONSISTENT WITH SHANIA SPECIES ARE PRESENT. Specimen Adequacy: Comment [facility] Comment: Satisfactory for evaluation. Endocervical and/or squamous metaplastic cells (endocervical component) are present. Clinician Provided ICD10: Comment [facility] Comment: Z12.4 Z11.51 Performed By: Comment [facility] Comment:Constance Julien, Cytot echnologist (ASCP) Cyto Comments . [facility] Note: Comment [facility] Comment: The Pap smear is a screening test designed to aid in the detection of premalignant and malignant conditions of the uterine cervix. It is not a diagnostic procedure and should not be used as the sole means of detecting cervical cancer. Both false-positive and false-negative reports do occur. Test Methodology: Comment [facility] Comment: This liquid based ThinPrep(R) pap test was screened with the use of an image guided system. HPV Aptima Negative Negative [facility] Comment: This nucleic acid amplification test detects fourteen high-risk HPV types (16,18,31,33,35,39,45,51,52,56,58,59,66,68) without differentiation. Vaginal Fluid 09/14/2024 09/15/2024 Narrative [facility] - 09/17/2024 1:07 PM EDT Performed at: 01 - [facility] [id number] Corporate Development Manager: Drea Headley MD, Phone: [phone] Performed at: 02 - [facility] [id number] Corporate Development Manager: Drea Headley MD, Phone: [phone] Specimen Comment: No. of containers..01 ThinPrep Vial us Paul Cabral MD LAB BLOOD ORDERABLES Final Res ult [facility] from Last 3 Months or Most Recently Relevant to Health Maintenance Insurance [facility] [place] [id number] Care Teams Biodiesel Engine Specialist Relationship Specialty Start Date End Date Unallocated, [facility] Breanna, [facility] [place] [address] PCP - General 03/12/23
--- OUTSIDE RECORDS SUMMARY | 2024-12-27 09:47 | XMS_ITS | Encounter Summary ---
Author Organization [facility] Address [address] [place] [address] Care Team Providers Care Straddle Bug Operator Name Role Phone Unallocated, Noms Provider Primary Care Provi isaiah Encounter Details Date Type Department Care Team (Late Contact Info) Description 02/01/[address] [facility] [id number] [phone] Tho Rhodes MD [address] [id number] Social History Tobacco Use Types Packs/Day Years Used Date Smoking Tobacco: Never Passive Smoke Exposure: Never Smokeless Tobacco: Never Alcohol Use Standard Drinks/Week Comments Never 0 (1 standard drink = 0.6 oz pur e alcohol) caffeine 1-2 cups per day Comments Unknown Sex and Gender Information Value Date Recorded [...] FRENCH LÓPEZ B [address] [facility] [address] [place] [phone] Chasity Roberson, TITLE INSURANCE EXAMINER [address], [facility] [address] [place] [phone] documented as of this encounter Visit Diagnoses Not on filedocumented in this encounter Care Teams Straddle Bug Operator Relationship Specialty Start Date End Date Unallocated, Noms Provider, [address] [place] [address] PCP - General 03/12/23 documented as of this encounter
--- OUTSIDE RECORDS SUMMARY | 2024-12-27 09:47 | XMS_ITS | Encounter Summary ---
Author Organization [facility] Address [address] [place] [address] Care Team Providers Care Diesel Engine Inspector Name Role Phone Unallocated, Noms Provider Primary Care Provi isaiah Encounter Details Date Type Department Care Team (Latest Contact Info) Description 12/13/2024 Travel Social History Tobacco Use Types Packs/Day Years [...] Visit [facility]ENCH LÓPEZ B [address] [facility] [address] [place] [address] Chasity Roberson, SECURITIES UNDERWRITER [address], [facility] [address] [place] [address] documented as of this encounter Visit Diagnoses Not on filedocumented in this encounter Care Teams Diesel Engine Inspector Relationship Specialty Start Date End Date Unallocated, Noms Provider, MD Dahiana [place], [place] [id number] PCP - General 03/12/23 documented as of this encounter
--- OUTSIDE RECORDS SUMMARY | 2024-12-27 10:11 | XMS_ITS | CCD ---
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 Automatic Name Role Phone FRANCIE GUADALUPE Unavailable Unavailable FRANCIE GUADALUPE Unavailable Unavailable SELF, REFERRED Unavailable Unavailable BECERRA, DUANE Unavailable Unavailable HUMBLE, ABDULAZIM Unavailable Unavailable HUMBLE, ABDULAZIM Unavailable Unavailable SELF, REFERRED Unavailable Unavailable BECERRA, DUANE Unavailable Unavailable DC Unavailable Unavailable HUMBLE, ABDULAZIM Unavailable Unavailable DC Unavailable Unavailable LANCMANUEL LaddEN Unavailable Unavailable Wynkoop, Leticia Unavailable Unavailable Wynkoop, Leticia Unavailable Unavailable Wynkoop, Leticia Unavailable Unavailable BECERRA, DUANE Unavailable Unavailable Wynkoop, Leticia Unavailable Unavailable Wynkoop, Leticia Unavailable Unavailable Wynkoop, Leticia Unavailable Unavailable BECERRA, DUANE Unavailable Unavailable BECERRA, DR DEAL A Primary Care Unavailable PAY, DR PACE Admitting Unavailable PAY, DR PACE Attending Unavailable KULWINDERCHPAO SMITH Consulting Unavailable BILL SHANE Consulting Unavailable KARASIK, DR CHIANG Admitting Unavailable KARASIK, DR CHIANG Attending Unavailable BECERRA, DR DEAL A Primary Care Unavailable KARASIK, DR CHIANG Consulting Unavailable BECERRA, DR DEAL A Primary Care Unavailable RADHA BOSCH Admitting Unavailable RADHA BOSCH Attending Unavailable RADHA BOSCH Consulting Unavailable Brigitte Bradley Unavailable Unallocated , Noms Provider Primary Care Provi isaiah BEN RHODES Attending Unavailable PDAMAJA YAN Attending Unavailable CANDE COWART Attending Unavailable CANDE COWART Referring Unavailable BEN RHODES Attending Unavailable BEN RHODES Attending Unavailable Allergies Allergy Classification Reported Allergen(s) Allergy Type Date of Onset Reaction(s) Facility (1 source) acetaminophen / HYDROcodone Drug Allergy 12-07-[address] [facility] Repository Medications Current Medications Medication Drug Class(es) Dates Sig (Normalized) Sig (Original) ALPRAZolam 0.25 mg oral tablet (4 sources) Benzodiazepine Start: 12-13-2024 ALPRAZolam (Xanax) 0.25 MG tablet Indications: Claustrophobia Take 1 tab 30-45 min before PAP therapy. 30 tablet 3 12/13/2024 Active Start: 06-10-2024 take 1 tablet by enil th every six hours as needed ALPRAZolam (Xanax) 0.5 MG tablet Take 0.5 mg by mouth every 6 (six) hours if needed 06/10/2024 Active 24 hr buPROPion hydrochloride 150 mg extended release oral tablet (2 sources) Aminoketone Start: 07-06-2024 take 1 tablet by mouth every twenty-four hours in the morning buPROPion XL (Wellbutrin XL) 150 MG 24 hr tablet Take 150 mg by mouth in the morning. 07/06/2024 Active busPIRone hydrochloride 5 mg oral tablet (10 sources) Start: 09-24-2023 take 5 mg by mouth once daily Buspirone Active 5 MG PO Daily September 24, 2023 12:00am Start: 03-30-2023 busPIRone (Bus par) 5 MG tablet every 12 (twelve) hours. 03/30/2023 Active Crutches-Aluminum - (1 source) Start: 12-27-2018 Crutches-Alumi num - as directed Dec, Active eszopiclone 1 mg oral tablet (2 sources) Start: 07-19-2024 End: 12-16-2024 take 1 tablet by mouth at bedtime eszopiclone (Lunesta) 1 MG tablet Indications: Insomnia, psychophysiological Take 1 tablet (1 mg) by mouth at bedtime 30 tablet 4 07/19/2024 12/16/2024 Active magnesium oxide 500 mg oral tablet (10 sources) Start: 09-24-2023 magnesium oxid e 500 MG tablet Daily 09/24/2023 Active Start: 09-24-2023 take 250 mg by mouth once iron y Magnesium Oxide Active 250 MG PO Daily September 24, 2023 12:00am ondansetron 4 mg disintegrating oral tablet (10 sources) Serotonin-3 Receptor Antagonist Start: 12-19-2021 take [...] needed for nausea and vomiting May, Active pantoprazole 40 mg delayed release oral tablet (8 sources) Proton Pump Inhibitor take 1 tablet by mouth before mealtime pantoprazole (ProtoNix) 40 MG EC tablet Take 40 mg by mouth in the morning. Take before meals. Do not crush, chew, or split.. Active rizatriptan 10 mg oral tablet (5 sources) Serotonin-1b and Serotonin-1d Receptor Agonist Start: [...] succinate 25 mg extended release oral tablet (12 sources) beta-Adrenergic Carey Start: 03-16-2024 End: 04-12-2024 [...] mouth Do not crush or chew. Active OXcarbazepine 300 mg oral tablet (15 sources) Anti-epileptic Agent Start: 02-03-2024 End: 12-13-2025 take 1 tablet by mouth in the morning OXcarbazepine (Trileptal) 300 MG tablet Indications: Epilepsy undetermined as to focal or generalized (HCC) Take 1 tablet (300 mg) by mouth in the morning and 1 tablet (300 mg) before bedtime. 180 tablet 3 09/06/2024 12/13/2024 Discontinued (Reorder) Start: 09-24-2023 take 300 mg by mouth twice daily Oxcarbazepine Active 300 MG PO Twice daily September 24, 2023 12:00am Trileptal Active SUMAtriptan 100 mg oral tablet (6 sources) Serotonin-1b and Serotonin-1d Receptor Agonist Start: 04-28-2022 End: 04-12-2024 take 1 tablet by mouth once SUMAtriptan (Imitrex) 100 MG tablet Take 100 mg by mouth 1 (one) time if needed. 04/28/2022 04/12/2024 Discontinued Problems Active Problems Problem Classification Problem Date Documented Date Episodic/Chronic Abdominal pain (7 sources) Right upper quadrant pain; Translations: [Epigastric pain] Onset: 10-04-2021 Episodic Anxiety disorders (4 sources) Claustrophobia; Translations: [Claustrophobia] Onset: 12-13-2024 12-13-2024 Chronic Biliary tract disease (2 sources) Calculus of bile duct without cholangitis or cholecystitis without obstruction; Translations: [Calculus of gallbladder without cholecystitis without obstruction] Onset: 10-08-2021 Episodic Digestive congenital anomalies (9 sources) Enlargement of tongue; Translations: [Macroglossia] Onset: 02-01-2023 02-01-2023 Chronic Epilepsy; convulsions (16 sources) Epilepsy, unspecified, not intractable, without status [...] AND LANDSCAPING] Onset: 12-04-2017 Headache; including migraine (15 sources) Migraine without aura, not refractory ; Translations: [Migraine without aura, not intractable, without status migrainosus] Onset: 02-01-2023 02-01-2023 Chronic Miscellaneous mental health disorders (9 sources) Psychophysiologic insomnia; Translations: [Psychophysiologic insomnia] Onset: 07-19-2024 07-19-2024 Chronic Open wounds of extremities (4 sources) Laceration of flexor muscle, fascia and tendon of right index finger at wrist and hand level, subsequent encounter; Translations: [Laceration of flexor muscle, fascia and tendon of right index finger at wrist and hand level, initial encounter] Onset: 12-04-2017 Episodic Other aftercare (1 source) 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; Translations: [[facility] S[facility]IOR CARE CURRENT DRUG THERAPY] Onset: 10-08-2021 Episodic Other connective tissue disease (15 sources) Spasm of cervical paraspinous muscle; Translations: [Other muscle spasm] Onset: 02-03-2023 02-03-2023 Episodic Other injuries and conditions due to external causes (7 sources) Injury of digital nerve of right index finger, initial encounter; Translations: [Unspecified injury of right wrist, hand and finger(s), initial encounter] Onset: 12-04-2017 Episodic Other nervous system disorders (9 sources) Circadian rhythm sleep disorder of shift work type; Translations: [Circadian rhythm sleep disorder, shift work type] Onset: 02-01-2023 02-01-2023 Chronic Residual codes; unclassified (15 sources) Obstructive sleep apnea syndrome; Translations: [Obstructive [...] Onset: 07-30-2021 Episodic Other upper respiratory disease (9 sources) Pharyngeal stenosis; Translations: [Other diseases of pharynx] Onset: 02-01-2023 02-01-2023 Episodic Spondylosis; intervertebral disc disorders; other back problems (9 sources) Myofascial pain syndrome; Translations: [Cervicalgia] Onset: 02-03-2023 02-03-2023 Episodic Results Test Name Value Interpretation Reference Range Facility BI MAMMOGRAM SCREENING TOMOS YNTHESIS BILATERALon 09-29-2024 BI MAMMOGRAM SCREENING TOMOSYNTHESIS BILATERAL This is a summary report. The complete report is available in the patient's medical record. If you cannot access the medical record, please contact the sending organization for a detailed fax or copy. Examination: BI MAMMOGRAM SCREENING TOMOSYNTHESIS BILATERAL Clinical [...] Mammogram ELECTRONICALLY SIGNED BY: Felipe Waldrop M.D. Normal Not Available Comment on above: Order Comment: U/S a nd spot compression if indicated No Panel InformationOrdered By: Zenobia Vyas on 09-24-2023 Quick Strep (POC) [facility] AMYLASEon 12-19-2021 Amylase [Catalytic activity/Vol] 49 U/L Normal 25-115 [facility] Comment on above: Performed By: #### L IPA, LIVER, BMP, NIMESH #### [facility] [address] [address] [address] Remington Correia CBC AUTO DIFFon 12-19-2021 BASO # 0.0 103/ul Normal 0.0-0.1 [facility] Comment on above: Performed By: #### C BC #### [facility] [address] [address] [address] Remington Correia Basophils/100 WBC (Bld) 0.2 % Normal 0.2-2.0 [facility] Comment on above: Performed By: #### C BC #### [facility] [address] [place] [address] Dr. Remington Correia EO # 0.1 103/ul Normal 0.0-0.7 [facility] Comment on above: Performed By: #### C BC #### [facility] [address] [place] [address] Dr. Remington oCrreia Eosinophils/100 WBC (Bld) 1.6 % Normal 0.9-7.0 [facility] Comment on above: Performed By: #### C BC #### [facility] [address] [place] [address] Dr. Remington Correia Erythrocyte distribution width (RBC) [Ratio] 12.1 % Normal 11.0-15.0 [facility] Comment on above: Performed By: #### C BC #### [facility] [address] [place] [address] Dr. Remington Correia Hematocrit (Bld) [Volume fraction] 40.2 % Normal 36.0-48.0 [facility] Comment on above: Performed By: #### C BC #### [facility] [address] [place] [address] Dr. Remington Correia Hemoglobin (Bld) [Mass/Vol] 13.7 g/dL Normal 12.0-16.0 [facility] Comment on above: Performed By: #### C BC #### [facility] [address] [address] [address] Remington Correia IG # 0.04 10e3/ul Critically high 0.00-0.03 [facility] Comment on above: Performed By: #### C BC #### [facility] [address] [place] [address] Dr. Remington Correia IG % 0.5 % Normal 0.0-0.5 [facility] Comment on above: Performed By: #### C BC #### [facility] [address] [place] [address] Dr. Remington Correia LYMPH # 1.5 103/ul Normal 1.2-3.8 [facility] Comment on above: Performed By: #### C BC #### [facility] [address] [place] [address] Dr. Remington Correia Lymphocytes/100 WBC (Bld) 17.2 % Critically low 20.5-60.0 [facility] Comment on above: Performed By: #### C BC #### [facility] [address] [place] [address] Dr. Remington Correia MANUAL DIFF REQ NO Normal [facility] Comment on above: Performed By: #### C BC #### [facility] [address] [place] [address] Dr. Remington Correia MCH (RBC) [Entitic mass] 32.4 pg Normal 26.7-34.0 [facility] Comment on above: Performed By: #### C BC #### [facility] [address] [place] [address] Dr. Remington Correia MCHC (RBC) [Mass/Vol] 34.1 g/dL Normal 29.9-35.2 [facility] Comment on above: Performed By: #### C BC #### [facility] [address] [place] [address] Dr. Remington Correia MCV (RBC) [Entitic vol] 95.0 fL Normal 81.0-99.0 [facility] Comment on above: Performed By: #### C BC #### [facility] [address] [place] [address] Dr. Remington Correia MONO # 0.7 103/ul Normal 0.3-0.8 [facility] Comment on above: Performed By: #### C BC #### [facility] [address] [place] [address] Dr. Remington Correia Monocytes/100 WBC (Bld) 7.7 % Normal 1.7-12.0 [facility] Comment on above: Performed By: #### C BC #### [facility] [address] [place] [address] Dr. Remington Correia NEUT # 6.5 103/ul Normal 1.4-6.5 [facility] Comment on above: Performed By: #### C BC #### [facility] [address] [place] [address] Dr. Remington Correia Neutrophils/100 WBC (Bld) 72.8 % Normal 43.0-75.0 [facility] Comment on above: Performed By: #### C BC #### [facility] [address] [place] [address] Dr. Remington Correia Platelet mean volume (Bld) [Entitic vol] 9.0 fL Critically low 9.5-13.5 [facility] Comment on above: Performed By: #### C BC #### [facility] [address] [place] [address] Dr. Remington Correia PLT 344 103/ul Normal 150-450 [facility] Comment on above: Performed By: #### C BC #### [facility] [address] [place] [address] Dr. Remington Correia RBC 4.23 106/ul Normal 4.20-5.40 [facility] Comment on above: Performed By: #### C BC #### [facility] [address] [place] [address] Dr. Remington Correia WBC 8.9 103/ul Normal 4.0-11.0 [facility] Comment on above: Performed By: #### C BC #### [facility] [address] [place] [address] Dr. Remington Correia LIPASEon 12-19-2021 Lipase [Catalytic activity/Vol] 84.0 U/L Normal 73.0-393.0 [facility] Comment on above: Performed By: #### L IPA, LIVER, BMP, NIMESH #### [facility] [address] [address] [address] Remington Correia LIVER PROFILEon 12-19-2021 Albumin [Mass/Vol] 4.1 g/dL Normal 3.4-5.0 [facility] Comment on above: Performed By: #### L IPA, LIVER, BMP, NIMESH #### [facility] [address] [address] [address] Remington Correia Albumin/Globulin [Mass ratio] 1.2 {ratio} Normal [facility] Comment on above: Performed By: #### L IPA, LIVER, BMP, NIMESH #### [facility] [address] [address] [address] Remington Correia ALP [Catalytic activity/Vol] 49 U/L Normal 46-116 [facility] Comment on above: Performed By: #### L IPA, LIVER, BMP, NIMESH #### [facility] [address] [address] [address] Remington Correia ALT [Catalytic activity/Vol] 36 U/L Normal 14-59 [facility] Comment on above: Performed By: #### L IPA, LIVER, BMP, NIMESH #### [facility] [address] [address] [address] Remington Correia AST [Catalytic activity/Vol] 32 U/L Normal 15-37 [facility] Comment on above: Performed By: #### L IPA, LIVER, BMP, NIMESH #### [facility] [address] [address] [address] Remington Correia BILI, CONJUGATED 0.2 mg/dL Normal 0.0-0.2 [facility] Comment on above: Performed By: #### L IPA, LIVER, BMP, NIMESH #### [facility] [address] [address] [address] Remington Correia Bilirubin [Mass/Vol] 0.5 mg/dL Normal 0.2-1.0 [facility] Comment on above: Performed By: #### L IPA, LIVER, BMP, NIMESH #### [facility] [address] [address] [address] Remington Correia Globulin (S) [Mass/Vol] 3.5 g/dL Normal [facility] Comment on above: Performed By: #### L IPA, LIVER, BMP, NIMESH #### [facility] [address] [address] [address] Remington Correia Protein [Mass/Vol] 7.6 g/dL Normal 6.4-8.2 [facility] Comment on above: Performed By: #### L IPA, LIVER, BMP, NIMESH #### [facility] [address] [place] [address] Dr. Remington Correia PROF CHEM 8 (BAS METB)on Anion gap [Moles/Vol] 14.1 mmol/L Normal [facility] Comment on above: Performed By: #### L IPA, LIVER, BMP, NIMESH #### [facility] [address] [place] [address] Dr. Remington Correia Calcium [Mass/Vol] 9.0 mg/dL Normal 8.5-10.1 [facility] Comment on above: Performed By: #### L IPA, LIVER, BMP, NIMESH #### [facility] [address] [place] [address] Dr. Remington Correia Chloride [Moles/Vol] 101 mmol/L Normal 98-107 [facility] Comment on above: Performed By: #### L IPA, LIVER, BMP, NIMESH #### [facility] [address] [place] [address] Dr. Remington Correia CO2 [Moles/Vol] 26.5 mmol/L Normal 21.0-32.0 [facility] Comment on above: Performed By: #### L IPA, LIVER, BMP, NIMESH #### [facility] [address] [address] [address] Remington Correia Creatinine [Mass/Vol] 0.80 mg/dL Normal 0.55-1.02 [facility] Comment on above: Performed By: #### L IPA, LIVER, BMP, NIMESH #### [facility] [address] [address] [address] Remington Correia EGFR-AF CITIZ[place] >60 Normal >=60 [facility] Comment on above: Performed By: #### L IPA, LIVER, BMP, NIMESH #### [facility] [address] [address] [address] Remington Correia EGFR-NON AF CITIZEN OF [place] >60 Normal >=60 [facility] Comment on above: Performed By: #### L IPA, LIVER, BMP, NIMESH #### [facility] [address] [address] [address] Remington Correia Glucose [Mass/Vol] 123 mg/dL Critically high 74-106 [facility] Comment on above: Performed By: #### L IPA, LIVER, BMP, NIMESH #### [facility] [address] [place] [address] Dr. Remington Correia Potassium [Moles/Vol] 3.6 mmol/L Normal 3.5-5.1 [facility] Comment on above: Performed By: #### L IPA, LIVER, BMP, NIMESH #### [facility] [address] [address] [address] Remington Correia Sodium [Moles/Vol] 138 mmol/L Normal 136-145 [facility] Comment on above: Performed By: #### L IPA, LIVER, BMP, NIMESH #### [facility] [address] [address] [address] Remington Correia Urea nitrogen [Mass/Vol] 9.0 mg/dL Normal 7.0-18.0 [facility] Comment on above: Performed By: #### L IPA, LIVER, BMP, NIMESH #### [facility] [address] [address] [address] Remington Correia Urea nitrogen/Creatinine [Mass ratio] 11.2 mg/mg Normal [facility] Comment on above: Performed By: #### L IPA, LIVER, BMP, NIMESH #### [facility] [address] [address] [address] Remington Correia CBC AUTO DIFFon 10-04-2021 BASO # 0.0 103/ul Normal 0.0-0.1 [facility] Comment on above: Performed By: #### L IPA, LIVER, BMP, NIMESH #### [facility] [address] [place] [address] Dr. Remington Correia Basophils/100 WBC (Bld) 0.3 % Normal 0.2-2.0 [facility] Comment on above: Performed By: #### L IPA, LIVER, BMP, NIMESH #### [facility] [address] [place] [address] Dr. Remington Correia EO # 0.1 103/ul Normal 0.0-0.7 [facility] Comment on above: Performed By: #### L IPA, LIVER, BMP, NIMESH #### [facility] [address] [place] [address] Dr. Remington Correia Eosinophils/100 WBC (Bld) 0.4 % Critically low 0.9-7.0 [facility] Comment on above: Performed By: #### L IPA, LIVER, BMP, NIMESH #### [facility] [address] [place] [address] Dr. Remington Correia Erythrocyte distribution width (RBC) [Ratio] 11.9 % Normal 11.0-15.0 [facility] Comment on above: Performed By: #### L IPA, LIVER, BMP, NIMESH #### [facility] [address] [place] [address] Dr. Remington Correia Hematocrit (Bld) [Volume fraction] 41.4 % Normal 36.0-48.0 [facility] Comment on above: Performed By: #### L IPA, LIVER, BMP, NIMESH #### [facility] [address] [place] [address] Dr. Remington Correia Hemoglobin (Bld) [Mass/Vol] 14.1 g/dL Normal 12.0-16.0 [facility] Comment on above: Performed By: #### L IPA, LIVER, BMP, NIMESH #### [facility] [address] [place] [address] Dr. Remington Correia IG # 0.04 10e3/ul Critically high 0.00-0.[address] [facility] Comment on above: Performed By: #### L IPA, LIVER, BMP, NIMESH #### [facility] [address] [place] [address] Dr. Remington Correia IG % 0.3 % Normal 0.0-0.5 [facility] Comment on above: Performed By: #### L IPA, LIVER, BMP, NIMESH #### [facility] [address] [place] [address] Dr. Remington Correia LYMPH # 1.8 103/ul Normal 1.2-3.8 [facility] Comment on above: Performed By: #### L IPA, LIVER, BMP, NIMESH #### [facility] [address] [place] [address] Dr. Remington Correia Lymphocytes/100 WBC (Bld) 13.5 % Critically low 20.5-60.0 [facility] Comment on above: Performed By: #### L IPA, LIVER, BMP, NIMESH #### [facility] [address] [place] [address] Dr. Remington Correia MANUAL DIFF REQ NO Normal [facility] Comment on above: Performed By: #### L IPA, LIVER, BMP, NIMESH #### [facility] [address] [place] [address] Dr. Remington Correia MCH (RBC) [Entitic mass] 31.9 pg Normal 26.7-34.0 [facility] Comment on above: Performed By: #### L IPA, LIVER, BMP, NIMESH #### [facility] [address] [place] [address] Dr. Remington Correia MCHC (RBC) [Mass/Vol] 34.1 g/dL Normal 29.9-35.2 [facility] Comment on above: Performed By: #### L IPA, LIVER, BMP, NIMESH #### [facility] [address] [place] [address] Dr. Remington Correia MCV (RBC) [Entitic vol] 93.7 fL Normal 81.0-99.0 [facility] Comment on above: Performed By: #### L IPA, LIVER, BMP, NIMESH #### [facility] [address] [address] [address] Remington Correia MONO # 1.1 103/ul Critically high 0.3-0.8 [facility] Comment on above: Performed By: #### L IPA, LIVER, BMP, NIMESH #### [facility] [address] [address] [address] Remington Correia Monocytes/100 WBC (Bld) 7.8 % Normal 1.7-12.0 [facility] Comment on above: Performed By: #### L IPA, LIVER, BMP, NIMESH #### [facility] [address] [address] [address] Remington Correia NEUT # 10.5 103/ul Critically high 1.4-6.5 [facility] Comment on above: Performed By: #### L IPA, LIVER, BMP, NIMESH #### [facility] [address] [place] [address] Dr. Remington Correia Neutrophils/100 WBC (Bld) 77.7 % Critically high 43.0-75.0 [facility] Comment on above: Performed By: #### L IPA, LIVER, BMP, NIMESH #### [facility] [address] [address] [address] Remington Correia Platelet mean volume (Bld) [Entitic vol] 9.0 fL Critically low 9.5-13.5 [facility] Comment on above: Performed By: #### L IPA, LIVER, BMP, NIMESH #### [facility] [address] [address] [address] Remington Correia PLT 342 103/ul Normal 150-450 [facility] Comment on above: Performed By: #### L IPA, LIVER, BMP, NIMESH #### [facility] [address] [address] [address] Remington Correia RBC 4.42 106/ul Normal 4.20-5.40 [facility] Comment on above: Performed By: #### L IPA, LIVER, BMP, NIMESH #### [facility] [address] [address] [address] Remington Correia WBC 13.5 103/ul Critically high 4.0-11.0 [facility] Comment on above: Performed By: #### L IPA, LIVER, BMP, NIMESH #### [facility] [address] [address] [address] Remington BARR URINE PROFILEon 2 Bilirubin Ql (U) Negative Normal NEGATIVE [facility] Comment on above: Performed By: #### L IPA, LIVER, BMP, NIMESH #### [facility] [address] [address] [address] Remington Correia Clarity (U) CLEAR Normal CLEAR [facility] Comment on above: Performed By: #### L IPA, LIVER, BMP, NIMESH #### [facility] [address] [address] [address] Remington Correia Color (U) YELLOW Normal YELLOW [facility] Comment on above: Performed By: #### L IPA, LIVER, BMP, NIMESH #### [facility] [address] [address] [address] Remington ROLLINS A micrscopic examination will be performed if indicated. Normal [facility] Comment on above: Performed By: #### L IPA, LIVER, BMP, NIMESH #### [facility] [address] [address] [address] Remington Correia Glucose Ql (U) Negative Normal NEGATIVE [facility] Comment on above: Performed By: #### L IPA, LIVER, BMP, NIMESH #### [facility] [address] [address] [address] Remington Correia Hemoglobin Ql (U) Negative Normal NEGATIVE [facility] Comment on above: Performed By: #### L IPA, LIVER, BMP, NIMESH #### [facility] [address] [address] [address] Remington Correia Ketones Ql (U) Negative Normal NEGATIVE [facility] Comment on above: Performed By: #### L IPA, LIVER, BMP, NIMESH #### [facility] [address] [address] [address] Remington Correia LEUKOCYTES Negative Normal NEGATIVE [facility] Comment on above: Performed By: #### L IPA, LIVER, BMP, NIMESH #### [facility] [address] [address] [address] Remington Correia Nitrite Ql (U) Negative Normal NEGATIVE [facility] Comment on above: Performed By: #### L IPA, LIVER, BMP, NIMESH #### [facility] [address] [place] [address] Dr. Remington Correia pH (U) 6.0 [pH] Normal 5-9 [facility] Comment on above: Performed By: #### L IPA, LIVER, BMP, NIMESH #### [facility] [address] [place] [address] Dr. Remington Correia SPEC GRAVITY 1.025 Normal 1.005-<=1.02 5 [facility] Comment on above: Performed By: #### L IPA, LIVER, BMP, NIMESH #### [facility] [address] [place] [address] Dr. Remington Correia UA PROTEIN Negative Normal NEGATIVE/ TRACE [facility] Comment on above: Performed By: #### L IPA, LIVER, BMP, NIMESH #### [facility] [address] [place] [address] Dr. Remington Correia UR MICRO IND NOT INDICATED Normal [facility] Comment on above: Performed By: #### L IPA, LIVER, BMP, NIMESH #### [facility] [address] [place] [address] Dr. Remington Correia Urobilinogen Qn (U) 1.0 {Gena'U}/dL Normal 0.2 - 1. 0 [facility] Comment on above: Performed By: #### L IPA, LIVER, BMP, NIMESH #### [facility] [address] [place] [address] Dr. Remington Correia LIPASEon 10-04-2021 Lipase [Catalytic activity/Vol] 114.0 U/L Normal 23.0-300.0 [facility] Comment on above: Performed By: #### H STROPN, CMP, LIPA #### [facility] [address] [address] [address] Remington Correia URon 10-04-2021 , QUAL Negative Normal NEGATIVE [facility] Comment on above: Performed By: #### L IPA, LIVER, BMP, NIMESH #### [facility] [address] [address] [address] Remington Correia PROF 14(COMP METB)on 022 Albumin [Mass/Vol] 4.1 g/dL Normal 3.4-5.0 [facility] Comment on above: Performed By: #### H STROPN, CMP, LIPA #### [facility] [address] [address] [address] Remington Correia Albumin/Globulin [Mass ratio] 1.1 {ratio} Normal [facility] Comment on above: Performed By: #### H STROPN, CMP, LIPA #### [facility] [address] [place] [address] Dr. Remington Correia ALP [Catalytic activity/Vol] 61 U/L Normal 46-116 [facility] Comment on above: Performed By: #### H STROPN, CMP, LIPA #### [facility] [address] [place] [address] Dr. Remington Correia ALT [Catalytic activity/Vol] 66 U/L Critically high 14-59 [facility] Comment on above: Performed By: #### H STROPN, CMP, LIPA #### [facility] [address] [place] [address] Dr. Remington Correia Anion gap [Moles/Vol] 15.5 mmol/L Normal [facility] Comment on above: Performed By: #### H STROPN, CMP, LIPA #### [facility] [address] [address] [address] Remington Correia AST [Catalytic activity/Vol] 100 U/L Critically high 15-37 [facility] Comment on above: Performed By: #### H STROPN, CMP, LIPA #### [facility] [address] [place] [address] Dr. Remington Correia Bilirubin [Mass/Vol] 0.8 mg/dL Normal 0.2-1.3 [facility] Comment on above: Performed By: #### H STROPN, CMP, LIPA #### [facility] [address] [address] [address] Remington Correia Calcium [Mass/Vol] 9.0 mg/dL Normal 8.5-10.1 [facility] Comment on above: Performed By: #### H STROPN, CMP, LIPA #### [facility] [address] [address] [address] Remington Correia Chloride [Moles/Vol] 101 mmol/L Normal 98-107 [facility] Comment on above: Performed By: #### H STROPN, CMP, LIPA #### [facility] [address] [address] [address] Remington Correia CO2 [Moles/Vol] 25.3 mmol/L Normal 22.0-30.0 [facility] Comment on above: Performed By: #### H STROPN, CMP, LIPA #### [facility] [address] [place] [address] Dr. Remington Correia Creatinine [Mass/Vol] 0.72 mg/dL Normal 0.52-1.04 [facility] Comment on above: Performed By: #### H STROPN, CMP, LIPA #### [facility] [address] [place] [address] Dr. Remington Correia EGFR-AF CITIZEN [place] >60 Normal >=60 [facility] Comment on above: Performed By: #### H STROPN, CMP, LIPA #### [facility] [address] [place] [address] Dr. Remington Correia EGFR-NON AF CITIZEN OF [place] >60 Normal >=60 [facility] Comment on above: Performed By: #### H STROPN, CMP, LIPA #### [facility] [address] [address] [address] Remington Correia Globulin (S) [Mass/Vol] 3.7 g/dL Normal [facility] Comment on above: Performed By: #### H STROPN, CMP, LIPA #### [facility] [address] [address] [address] Remington Correia Glucose [Mass/Vol] 111 mg/dL Critically high 74-106 [facility] Comment on above: Performed By: #### H STROPN, CMP, LIPA #### [facility] [address] [address] [address] Remington Correia Potassium [Moles/Vol] 3.8 mmol/L Normal 3.4-5.0 [facility] Comment on above: Performed By: #### H STROPN, CMP, LIPA #### [facility] [address] [address] [address] Remington Correia Protein [Mass/Vol] 7.8 g/dL Normal 6.1-8.[address] [facility] Comment on above: Performed By: #### H STROPN, CMP, LIPA #### [facility] [address] [address] [address] Remington Correia Sodium [Moles/Vol] 138 mmol/L Normal 137-[address] [facility] Comment on above: Performed By: #### H STROPN, CMP, LIPA #### [facility] [address] [address] [address] Remington Correia Urea nitrogen [Mass/Vol] 12.0 mg/dL Normal 7.0-18.0 [facility] Comment on above: Performed By: #### H STROPN, CMP, LIPA #### [facility] [address] [address] [address] Remington Correia Urea nitrogen/Creatinine [Mass ratio] 16.7 mg/mg Normal [facility] Comment on above: Performed By: #### H STROPN, CMP, LIPA #### [facility] [address] [address] [address] Remington Correia TROPONIN, HIGH SENSITIVITYon 10-04-2021 HSTROP 4.9 pg/mL Normal 4.0-35.5 [facility] Comment on above: Result Comment: CUT- OFF POINTS HAVE BEEN ESTABLISHED BASED ON THE FOURTH UNIVERSAL DEFINITIONS OF MYOCARDIAL INFARCTION. THE UPPER REFERENCE LIMIT (URL) OF TROPONIN, DEFINED THE 99TH PERCENTILE OF cTnI DISTRIBUTION IN A REFERENCE POPULATION, HAS BEEN CONFIRMED THE DECISION THRESHOLD FOR RI DIAGNOSIS. Performed By: #### H STROPN, CMP, LIPA #### [facility] [address] [place] [address] Dr. Remington Correia US SINGLE QUAD RT [...] by: BILL SHANE Date: 2021-10-04 17:30 Normal [facility] PAP ACOG PANEL 2: 30 to 65on 08-03-2021 . . Normal [facility] Comment on above: Result Comment: Perf ormed at: WB Performed By: #### [id number] #### [facility] [address] [address] [address] Remington Correia Age Gdln ACOG Testing 30-65 Normal [facility] Comment on above: Performed By: #### [id number] #### [facility] [address] [address] [address] Remington Correia DIAGNOSIS: Comment Normal [facility] Comment on above: Result Comment: NEGA TIVE FOR INTRAEPITHELIAL LESION OR MALIGNANCY. Performed at: WB Performed By: #### 4 [id number] #### [facility] [address] [address] [address] Remington Correia HPV Aptima Negative Normal Negative [facility] Comment on above: Result Comment: This nucleic acid amplification test detects fourteen high-risk HPV types (16,18,31,33,35,39,45,51,52,56,58,59,66,68) without differentiation. Performed at: =G Performed By: #### [id number] #### [facility] [address] [place] [address] Dr. Remington Correia Methodology: Comment Normal [facility] Comment on above: Result Comment: This liquid based ThinPrep(R) pap test was screened with the use of an image guided system. Performed at: WB Performed By: #### [id number] #### [facility] [address] [place] [address] Dr. Remington Correia Note: Comment Normal [facility] Comment on above: Result Comment: The Pap smear is a screening test designed to aid in the detection of premalignant and malignant conditions of the uterine cervix. It is not a diagnostic procedure and should not be used as the sole means of detecting cervical cancer. Both false-positive and false-negative reports do occur. . Performed at: WB Performed By: #### [id number] #### [facility] [address] [place] [address] Dr. Remington Correia Performed by: Comment Normal [facility] Comment on above: Result Comment: Karrie Warren, House Coordinator Performed at: WB Performed By: #### 4 [id number] #### [facility] [address] [place] [address] Dr. Remington Correia Specimen adequacy: Comment Normal [facility] Comment on above: Result Comment: Sati sfactory for evaluation. Endocervical and/or squamous metaplastic cells (endocervical component) are present. Performed at: WB Performed By: #### [id number] #### [facility] [address] [place] [address] Dr. Remington Correia Operative Reporton 8 Operative Report MR#: [id number] [facility] Pt. Name: Bettina Coy Room #: 0C Discharge Date: Birthdate: 1985 OPERATIVE REPORTDATE OF SURGERY: 12/07/2017SURGEON: Donny Panda M.D.CHIP DRIER: Dr. Francisco.PREOPERATIVE DIAGNOSIS: Right index finger laceration [...] the DIP joint witha nonabsorbable suture in kgawzy-tg-[id number] fashion. We then used a sutureloop to [...] for the entire procedure. Date Dict: 12/07/2017/10:12 Denia/Pepe Francisco M.D.Date Trans: 12/08/2017 03:47 [id number] 467cc: Duane Becerra D.O. [address] [facility] [address] [address] [facility] POC GLUCOSE LABon 12-07-2017 Glucose mass conc 90 mg/dL Normal 70-[address] [facility] Comment on above: Performed By: #### 8 [id number] ####[facility] [place] [address], [facility] POC URINE PREGNANCYon 2017 HCG.beta subunit ( test) Ql (U) Negative Normal NEGATIVE [facility] Comment on above: Result Comment: Perf ormed in PACU Performed By: #### 8 [id number] ####[facility] [facility] [address], [facility] BASIC METABOLIC PANELon 06-0 Calcium mass conc 9.6 mg/dL Normal 8.6-10.[address] [facility] Comment on above: Order Comment: This order is a replacement of the rejected order with accession [id number]. Performed By: #### 0 [id number] ####[facility] [facility] [address], [facility] Chloride molar conc 100 mmol/L Normal 98-[address] [facility] Comment on above: Order Comment: This order is a replacement of the rejected order with accession [id number]. Performed By: #### 0 [id number] ####[facility] [facility] [place] [address], [facility] CO2 molar conc 27 mmol/L Normal 21-[address] [facility] Comment on above: Order Comment: This order is a replacement of the rejected order with accession [id number]. Performed By: #### 0 [id number] ####[facility] [facility] [place] [address], [facility] Creatinine mass conc 0.71 mg/dL Normal 0.60-1.[address] [facility] Comment on above: Order Comment: This order is a replacement of the rejected order with accession [id number]. Performed By: #### 0 [id number] ####[facility] [facility] [address], [facility] GFR/1.73 sq M predicted among blacks MDRD vol rate/area (S/P/Bld) mL/min/{1.73_m2} Normal >[address] [facility] Comment on above: Order Comment: This order is a replacement of the rejected order with accession [id number]. Performed By: #### 0 0071 ####[facility] [place] [address], [place] GFR/1.73 sq M predicted among non-blacks MDRD vol rate/area (S/P/Bld) mL/min/{1.73_m2} Normal >[address] [facility] Comment on above: Order Comment: This order is a replacement of the rejected order with accession [id number]. Performed By: #### 0 [id number] ####[facility] [place] [address], [facility] Glucose mass conc 89 mg/dL Normal 70-[address] [facility] Comment on above: Order Comment: This order is a replacement of the rejected order with accession [id number]. Performed By: #### 0 0071 ####[facility] [place] [address], [facility] Potassium molar conc 3.6 mmol/L Normal 3.5-5.[address] [facility] Comment on above: Order Comment: This order is a replacement of the rejected order with accession [id number]. Performed By: #### 0 0071 ####[facility] [place] [address], [facility] Sodium molar conc 135 mmol/L Low 136-[address] [facility] Comment on above: Order Comment: This order is a replacement of the rejected order with accession [id number]. Performed By: #### 0 0071 ####[facility] [place] [address], [facility] Urea nitrogen mass conc 10 mg/dL Normal 7-[address] [facility] Comment on above: Order Comment: This order is a replacement of the rejected order with accession [id number]. Performed By: #### 0 0071 ####[facility] CBC COMPLETE BLOOD COUNTon 0 12-04-2017 Erythrocyte distribution width Auto Ratio (RBC) 12.0 % Normal 11.5-15.[address] [facility] Comment on above: Performed By: #### 5 [id number] ####[facility] [place] [address], [facility] Hematocrit Auto Volume Fraction (Bld) 38.1 % Normal 36.0-45.[address] [facility] Comment on above: Performed By: #### 5 [id number] ####[facility] [facility].[address] Hemoglobin mass conc (Bld) 12.9 g/dL Normal 12.0-15.[address] [facility] Comment on above: Performed By: #### 5 0608 ####[facility] [facility].[address] MCH Auto Entitic mass (RBC) 31.8 pg Normal 27.0-33.[address] [facility] Comment on above: Performed By: #### 5 0608 ####[facility] [facility] MCHC Auto mass conc (RBC) 33.9 g/dL Normal 32.0-35.[address] [facility] Comment on above: Performed By: #### 5 0608 ####[facility] MCV Auto Entitic volume (RBC) 93.8 fL Normal 82.0-98.[address] [facility] Comment on above: Performed By: #### 5 0608 ####[place] [address] [facility].[address] Nucleated RBC/100 WBC Ratio (Bld) 0 % Normal 0-[address] [facility] Comment on above: Performed By: #### 5 0608 ####[facility] [facility] [place] [address], [facility] PLAT CNT 325 10*3/uL Normal 150-[address] [facility] Comment on above: Performed By: #### 5 0608 ####[facility] [facility].[address] RBC Auto #/vol (Bld) 4.06 10*6/uL Normal 3.80-5.[address] [facility] Comment on above: Performed By: #### 5 0608 ####[facility] [facility].[address] WBC Auto #/vol (Bld) 11.78 10*3/uL High 4.00-10.[address] [facility] Comment on above: Performed By: #### 5 0608 ####[facility] [facility].[address] PROTHROMBIN TIMEon 8 INR Coag RelTime (PPP) 1.00 {INR} Normal 0.91-1.[address] [facility] Comment on above: Result Comment: ACC[facility] P RECOMMENDED INR FOR WARFARIN THERAPY CONDITION INRPROPHYLAXIS OF VENOUS THROMBOSIS 2-3(HIGH-RISK SURGERY)TREATMENT OF VENOUS THROMBOSIS 2-3TREATMENT OF PULMONARY EMBOLISM 2-3PREVENTION OF SYSTEMIC EMBOLISM: 2-3 ACUTE MYOCARDIAL INFARCTION TISSUE HEART VALVES VALVULAR HEART DISEASE ATRIAL FIBRILLATION RECURRENT SYSTEMIC EMBOLISMMECHANICAL HEART VALVE 2.5-3.5 FROM: ORAL ANTICOAGULANTS. MECHANISM OF ACTION, CLINICALEFFECTIVENESS, AND OPTIMAL THERAPEUTIC RANGE. [id number]. Performed By: #### 5 [id number] ####[facility] [facility].[address] Prothrombin time (PT) Coag time (PPP) 13.2 s Normal 12.3-14.[address] [facility] Comment on above: Result Comment: ALL RESULTS MUST BE INTERPRETED WITH RESPECT TO BLOOD DRAWING ARTIFACTOR DILUTION ERROR OF ANTICOAGULANT AT THE TIME OF SAMPLING. Performed By: #### 5 [id number] ####[facility] [place] [address], [facility] TYPE AND SCREENon 12-04-2017 ABO INTERPRETATION A Normal [facility] Comment on above: Performed By: #### 6 [id number] ####[facility] [place] [address], [facility] ANTIBODY SCREEN Negative Normal [facility] Comment on above: Performed By: #### 6 [id number] ####[facility] [place] [address], [facility] RH INTERPRETATION Positive Normal [facility] Comment on above: Performed By: #### 6 [id number] ####[facility] [facility] [place] [address], [facility] Vital Signs Date Time Vital Sign Value Performing Clinician Facility 12-13-2024 10:42-0400 Body height 162.6 cm Ben Rhodes MD Work Phone: [facility] 12-13-2024 10:42-0400 Body mass index (BMI) [Ratio] 32.61 kg/m2 Ben Rhodes MD Work Phone: [facility] 12-13-2024 10:42-0400 Body weight 86.18 kg Ben Rhodes MD Work Phone: [facility] 07-19-2024 11:38-0500 Body height 167.6 cm Ben Rhodes MD Work Phone: [facility] 07-19-2024 11:38-0500 Body mass index (BMI) [Ratio] 29.05 kg/m2 Ben Rhodes MD Work Phone: [facility] 07-19-2024 11:38-0500 Body weight 81.65 kg Ben Rhodes MD Work Phone: [facility] 07-19-2024 11:38-0500 Diastolic blood pressure 78 mm[Hg] Ben Rhodes MD Work Phone: [facility] 07-19-2024 11:38-0500 Heart rate 68 /min Ben Rhodes MD Work Phone: [facility] 07-19-2024 11:38-0500 Systolic blood pressure 137 mm[Hg] Ben Rhodes MD Work Phone: [facility] 04-12-2024 11:58-0400 Body height 163.8 cm Ben Rhodes MD Work Phone: [facility] 04-12-2024 11:58-0400 Body mass index (BMI) [Ratio] 30.42 kg/m2 Ben Rhodes MD Work Phone: [facility] 04-12-2024 11:58-0400 Body weight 81.65 kg Ben Rhodes MD Work Phone: [facility] 04-12-2024 11:58-0400 Diastolic blood pressure 83 mm[Hg] Ben Rhodes MD Work Phone: [facility] 04-12-2024 11:58-0400 Heart rate 59 /min Ben Rhodes MD Work Phone: [facility] 04-12-2024 11:58-0400 Systolic blood pressure 123 mm[Hg] Ben Rhodes MD Work Phone: [facility] 09-24-2023 13:18-0400 Body height 163.83 cm [facility] 09-24-2023 13:18-0400 Body mass index (BMI) [Ratio] 31.4 kg/m2 [facility] 09-24-2023 13:18-0400 Body temperature 99.2 [degF] [facility] 09-24-2023 13:18-0400 Body weight 84.48 kg [facility] 09-24-2023 13:18-0400 Heart rate 88 /min [facility] 09-24-2023 13:18-0400 Respiratory rate 18 /min [facility] 09-24-2023 13:18-0400 SaO2% (BldA) [Mass fraction] 99 % [facility] 05-31-2021 11:25-0500 Body height 163.83 cm Brigitte Bradley Other [facility] Other 05-31-2021 11:25-0500 Body mass index (BMI) [Ratio] 31.16 kg/m2 Brigitte Bradley Other [facility] Other 05-31-2021 11:25-0500 Body temperature 98.4 [degF] Brigitte Bradley Other [facility] Other 05-31-2021 11:25-0500 Body weight 83.64 kg Brigitte Bradley Other [facility] Other 05-31-2021 11:25-0500 Diastolic blood pressure 108 mm[Hg] Brigitte Bradley Other [facility] Other 05-31-2021 11:25-0500 Respiratory rate 18 /min Brigitte Bradley Other [facility] Other 05-31-2021 11:25-0500 SaO2% (BldA) [Mass fraction] 97 % Brigitte Bradley Other [facility] Other 05-31-2021 11:25-0500 Systolic blood pressure 149 mm[Hg] Brigitte Bradley Other [facility] Other Encounters Encounter Date Encounter Type Care Provider Facility Start: 12-13-2024 End: 12-13-2024 Terri Rhodes MD Work Phone: [facility] Start: 12-13-2024 End: 12-13-2024 Terri Rhodes MD Work Phone: [facility] Start: 12-13-2024 End: 12-13-2024 ambulatory BEN RHODES Not Available Start: 12-13-2024 End: 12-13-2024 Office outpatient visit 25 minutes Ben Rhodes MD Work Phone: [facility] Comment on above: Epilepsy undetermine d as to focal or generalized (HCC) (Primary Dx); ELICEO (obstructive sleep apnea); Claustrophobia ; Insomnia, psychophysiological; Migraine without aura, not intractable, without status migrainosus ; Cervical paraspinal muscle spasm Start: 09-29-2024 End: 09-29-2024 ambulatory CANDE Bowles PRINTY Not Available Start: 09-14-2024 End: 09-14-2024 ambulatory CANDE Bowles PRINTY Not Available Start: 09-06-2024 End: 09-06-2024 ambulatory PADMAJA Hernandez ERASMOSANDRINEALEXANDER Not Available Start: 07-19-2024 End: 07-19-2024 Bamboo martínez Rhodes MD Work Phone: [facility] Start: 07-19-2024 End: 07-19-2024 Bamboo martínez Rhodes MD Work Phone: [facility] Start: 07-19-2024 End: 07-19-2024 Office outpatient visit 25 minutes Ben Rhodes MD Work Phone: [facility] Comment on above: Epilepsy undetermine d as to focal or generalized (CMS/HCC) (Primary Dx); Insomnia, psychophysiological; ELICEO (obstructive sleep apnea); Migraine without aura, not intractable, without status migrainosus (CMS/HCC); Cervical paraspinal muscle spasm Start: 07-19-2024 End: 07-19-2024 ambulatory BEN RHODES Not Available Start: 04-12-2024 End: 04-12-2024 Bamaman Rhodes MD Work Phone: [facility] Start: 04-12-2024 End: 04-12-2024 Bambochad Rhodes MD Work Phone: [facility] Start: 04-12-2024 End: 04-12-2024 ambulatory BEN RHODES Not Available Start: 04-12-2024 End: 04-12-2024 Office outpatient visit 25 minutes Ben Rhodes MD Work Phone: [facility] Comment on above: Epilepsy undetermine d as to focal or generalized (CMS/HCC) (Primary Dx); ELICEO (obstructive sleep apnea); Migraine without aura, not intractable, without status migrainosus (CMS/HCC); Cervical paraspinal muscle spasm Start: 09-24-2023 End: 09-24-2023 ambulatory [facility] Work Phone: Start: 09-24-2023 End: 09-24-2023 Patient encounter procedure [facility] Work Phone: Start: 12-19-2021 End: 12-19-[address] DUANE BECERRA Facility:[facility] Start: 10-04-2021 End: 10-04-[address] DUANE BECERRA Facility:[facility] Start: 07-30-2021 End: 07-30-[address] АНДРЕЙ PEREZ Facility:[facility] Start: 05-31-2021 End: 05-31-2021 ambulatory Brigitte Bradley Other [employer] Other Start: 05-31-2021 Office outpatient vi sit 15 minutes Brigitte Bradley [facility] Start: 12-27-2017 End: 01-27-2018 Patient encounter Leticia Davis Facility:[facility] Start: 12-17-2017 End: 12-27-2017 Patient encounter Leticia Davis Facility:[facility] Start: 12-07-2017 End: 12-08-2017 Patient encounter APOLONIA PANDA Facility:[facility] Start: 12-04-2017 End: 12-04-2017 Emergency department patient visit FRANCIE GUADALUPE Facility:[facility] Procedures Date Procedure Procedure Detail Performing Clinician Start: 09-29-2024 Mammography Ben Guzman Work Phone: Start: 09-24-2023 Quick Strep (POC) Start: 12-07-2017 ANESTH LOWER ARM SURGERY SUPA LANCZ Start: 12-07-2017 REPAIR FINGER/HAND TENDON ABDULAZIM HUMBLE Start: 12-07-2017 REPAIR OF DIGIT NERVE A BDULAZIM HUMBLE Plan of Treatment Date Care Activity Detail Author Start: 09-14-2029 Screening for malign ant neoplasm of cervix [facility] Start: 09-29-2025 Screening for malign ant neoplasm of breast Mammogram [facility] Start: 02-27-2025 Influenza vaccination Influenz a Vaccine (Season Ended) [facility] Start: 01-31-2025 End: 01-31-2025 Patient encounter procedure 01/31/2025 12:00 PM EDT Office Visit [facility] [address] [address] Padmaja Yan, WOOD CREW SUPERVISOR [address], [address] [phone] [facility] Start: 08-23-2024 End: 08-23-2024 Patient encounter procedure 08/23/2024 10:30 AM EST Office Visit [facility] [address] [address] Padmaja Yan, WOOD CREW SUPERVISOR [address], [address] [phone] [facility] Start: 07-19-2024 End: 07-19-[address] [facility] Comment on above: Arrived Start: 02-28-2024 Influenza vaccination Influenza Vacc ine (#1) [facility] Start: 2023 Screening for malign ant neoplasm of breast Mammogram [facility] Start: 09-25-2013 Screening for malign ant neoplasm of cervix [facility] Start: 09-25-2004 Screening for malign ant neoplasm of cervix Pap Smear [facility] Payers Date Payer Category Payer [facility] BCBS [id number] 2022 Unknown [id number] 2020 Private Health Insurance [facility] [id number] 1985 Unknown [id number] 1983 Unknown [id number] 1983 Unknown [id number] [id number] 1983 Unknown [id number] [id number] 1983 Unknown [id number] [id number] 1983 Unknown [id number] [id number] 1983 Unknown [id number] [id number] 1983 Unknown [id number] [id number] 1983 Unknown [id number] 1959 Unknown [id number] Self-pay Self Pay [id number] Unknown [id number] Unknown [employer] [id number] Social History Date Type Detail Facility Unknown if ever smoked [facility] [employer] Other Start: 01-01-2023 End: 09-14-2024 Sex Assigned At [employer] [facility] [employer] Other Start: 12-22-2016 End: 11-20-2022 Tobacco smoking status [facility] Never smoked tobacco (finding) [facility] Start: 1985 Sex Assigned At Female F [facility] Start: 11-20-2022 End: 09-14-2024 Tobacco use and exposure Smokeless tobacco non-user [facility] Start: 01-01-2023 Alcoholic beverage intake Lifetime non-drinker (finding) [facility] Start: 01-01-2023 End: 09-14-2024 History of Social function [facility] Start: 01-01-2023 Alcohol Comment caffeine 1-2 c ups per day [facility] Start: 04-11-2024 Gender identity Identifies as female gender (finding) [facility] Start: 04-11-2024 Sexual orientation Heterosexual (fin ding) [facility] Start: 09-14-2024 Tobacco smoking status NDIS Ex-smoker [facility] Start: 06-29-2009 End: 06-29-2019 History of tobacco use Current smoker [facility] Start: 06-29-2009 End: 06-29-2019 History of tobacco use Cigarette Smoker [facility] Start: 09-14-2024 Alcoholic beverage intake Current drinker of alcohol (finding) [facility] NEGATED: Highlighted rowStart: NINF History of tobacco use Passive smoker [facility] History of Present illness Narrative 12-13-2024 Ben Rhodes MD - 12/13/2024 10:30 AM EDLachelle Rhodes MD - 12/13/2024 10:30 AM EDLachelle Rhodes MD - 12/13/2024 10:30 AM EDLachelle Rhodes MD - 12/13/2024 10:30 AM EDTMwayne Rhodes MD - 12/13/2024 10:30 AM EDT Note Date & Type Note Facility 12-13-2024 History of Presen t illness Narrative Associated Problem(s): Epilepsy undetermined as to focal or generalized (HCC) Driving - may continue. WWE - on MVI. (Continue current regimen.) Levels! None since 2022! OXC AST ALT q Apr. Electrolytes q October. Orders: OXcarbazepine (Trileptal) 300 MG tablet; Take 1 tablet (300 mg) by mouth in the morning and 1 tablet (300 mg) before bedtime. Associated Problem(s): ELICEO (obstructive sleep apnea) (Continue PAP.) Have DME confirm that machine is in BiPAP mode (download suggests yes, but pt not sure) Refit mask - probably Dreamwear FFM or similar. Associated Problem(s): Claustrophobia Add alprazolam 0.25, best taken ~1/2 h ahs. Orders: ALPRAZolam (Xanax) 0.25 MG tablet; Take 1 tab 30-45 min before PAP therapy. Associated Problem(s): Insomnia, psychophysiological Add melatonin ER. Consider trazodone or doxepin Associated Problem(s): Migraine without aura, not intractable, without status migrainosus (Continue current regimen.) Associated Problem(s): Cervical paraspinal muscle spasm (Continue current regimen, home PT.) Images from the original note were not [...] in about 4 weeks (around 01/10/2025), or WOOD CREW SUPERVISOR. History of Present Illness, Associated Treatments and [...] needs FFM. 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 Sleep had also been poor due to [...] 5' 4 Wt 190 lb BMI 32.61 kg/m OB Status Having periods Smoking Status Former BSA 1.97 m Review of Systems - . Const: [...] Past Medical History: Diagnosis Date Bacterial vaginosis 2017 Breast mass 2013 Epilepsy (HCC) Genital warts [...] (300 mg) before bedtime. 180 tablet 3 pantoprazole (ProtoNix) 40 MG EC tablet Take 40 mg by mouth in the morning. Take before meals. Do not crush, chew, or split.. SUMAtriptan (Imitrex) 100 MG tablet Take 100 mg by mouth 1 (one) time if needed for migraine No facility-administered encounter medications on file as of 12/13/2024. Ben Rhodes M.D. [facility] Neurology ? [address] ? [place], [place] [address] ? ? fax Neurology ? Clinical Neurophysiology ? Epilepsy ? Sleep Disorders ? Clinical Informatics documented in this encounter [facility] History of Present illness Narrative 07-19-2024 Ben Rhodes MD - 07/19/2024 11:30 AM Yinka Rhodes MD - 07/19/2024 11:30 AM Yinka Rhodes MD - 07/19/2024 11:30 AM Yinka Rhodes MD - 07/19/2024 11:30 AM Yinka Rhodes MD - 07/19/2024 11:30 AM EST Note Date & Type Note Facility 07-19-2024 History of Presen t illness Narrative Associated Problem(s): Epilepsy undetermined as to focal or generalized (CMS/HCC) Driving - may continue. WWE - on MVI. (Continue current regimen.) OXC, AST ALT q Mar. Electrolytes q Apr Mar. Instructed pt to stop bupropion due to its strong seizure-triggering potential. Instr pt to call ordering doc to change med. Associated Problem(s): Insomnia, psychophysiological Add eszopiclone 1 hs. Plan on 2-3 mo, then prn. Orders: eszopiclone (Lunesta) 1 MG tablet; Take 1 tablet (1 mg) by mouth at bedtime Associated Problem(s): ELICEO (obstructive sleep apnea) Pt still still still has not received BiPAP machine. Call our [facility] rep, see what's going on. Asked pt to call [facility] also, rather then just getting text messages. Dowload 1 mo after received, then before appt. Associated Problem(s): Migraine without aura, not intractable, without status migrainosus (CMS/HCC) (Continue current regimen.) Associated Problem(s): Cervical paraspinal muscle spasm Add rotational stretches as demonstrated. May have Rx for PT if current approaches prove insufficient. Images from the original note were not included. Outpatient Progress Note Patient: Bettina Dejesus Dept: Neurology : 1985 Appt Date: 07/19/2024 Prev Appt: 04/12/2024 Chief Complaint Patient presents with Seizures Assessment and Plan - Assessment & Plan Epilepsy undetermined as to focal or generalized (CMS/HCC) Driving - may continue. WWE - on MVI. (Continue current regimen.) OXC, AST ALT q Mar. Electrolytes q Apr Mar. Instructed pt to stop bupropion due to its strong seizure-triggering potential. Instr pt to call ordering doc to change med. Insomnia, psychophysiological Add eszopiclone 1 hs. Plan on 2-3 mo, then prn. Orders: eszopiclone (Lunesta) 1 MG tablet; Take 1 tablet (1 mg) by mouth at bedtime ELICEO (obstructive sleep apnea) Pt still still still has not received BiPAP machine. Call our [facility] rep, see what's going on. Asked pt to call [facility] also, rather then just getting text messages. Dowload 1 mo after received, then before appt. Migraine without aura, not intractable, without status migrainosus (CMS/HCC) (Continue current regimen.) Cervical paraspinal muscle spasm Add rotational stretches as demonstrated. May have Rx for PT if current approaches prove insufficient. No orders of the defined types were placed in this encounter. Follow-Up - Follow up in about 4 weeks (around 08/16/2024). History of Present Illness, Associated Treatments and Results - Dx EPILEPSY Tx OXC gen 300 q12 [was 14.9, 9.3..14.9] + MVI (for folate) AEs denies somn, diplopia Hx Last conv sz - summer 2012 (missed meds). None recently, even with poor sleep post 's . Recently put on bupropion (!!). Aurae - none recently. Failed TPM 100 [...] absent Dx ELICEO . SWSS . INSOMNIA Tx BiPAP ordered but still not received Aes Hx ELICEO - Download - none recent. Use - unknown. Mask - prev mask felt heavy . PAP clearly improves sleep and daytime wakefulness. Great difficulty exhaling against pressure. 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 Sleep recently rather poor due to stress of 's . Failed CPAP (unable to exhale) Semeiol Snoring, apnoeas, nocturnal awakenings. Mouth dry AM. Unrested AM and all day. Weight difficult to control. Circad In bed 0. Out of bed 0530. Occ naps 20 [...] ___ Vital Signs - Visit Vitals BP 137/78 Pulse 68 Ht 5' 6 Wt 180 lb BMI 29.05 kg/m Smoking Status Never BSA 1.95 m Review of Systems - . Const: [...] Maternal Grandfather Outpatient Encounter Medications as of 07/19/2024 Medication Sig Dispense Refill ALPRAZolam (Xanax) 0.5 MG tablet Take 0.5 mg by mouth every 6 (six) hours if needed buPROPion XL (Wellbutrin XL) 150 MG 24 hr tablet Take 150 mg by mouth in the morning. busPIRone (Buspar) 5 MG tablet every 12 [...] meals. Do not crush, chew, or split.. rizatriptan (Maxalt) 10 MG tablet 1 tab PRN migraine, may repeat in 2 hours if needed. No more than 2 per TINAJERO or 4 per week. 9 tablet 5 No facility-administered encounter medications on file as of 07/19/2024. Ben Rhodes M.D. [facility] ? [address] ? [place], [place] [address] ? ? fax Neurology ? Clinical Neurophysiology ? Epilepsy ? Sleep Disorders ? Clinical Informatics documented in this encounter [facility] Healthcare History of Present illness Narrative 04-12-2024 Ben Rhodes MD - 04/12/2024 11:30 AM EDLachelle Rhodes MD - 04/12/2024 11:30 AM EDLachelle Rhodes MD - 04/12/2024 11:30 AM EDLachelle Rhodes MD - 04/12/2024 11:30 AM EDLachelle Rhodes MD - 04/12/2024 11:30 AM EDT Note Date & Type Note Facility 04-12-2024 History of Presen t illness Narrative Associated Problem(s): Epilepsy undetermined as to focal or generalized (CMS/HCC) Driving - may continue. WWE - on MVI. (Continue current regimen.) OXC, AST ALT q Mar. Electrolytes q Apr Mar. Associated Problem(s): ELICEO (obstructive sleep apnea) Pt [...] against pressure. 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 Failed CPAP (unable to exhale) Semeiol Snoring, [...] file as of 04/12/2024. Ben Rhodes M.D. [facility] Neurology ? [address] ? [place] [address] ? ? fax Neurology ? Clinical Neurophysiology ? Epilepsy ? Sleep Disorders ? Clinical Informatics documented in this encounter [facility] Healthcare Evaluation note 05-31-2021 Note Date & [...] no improvement in 1 or 2 days [employer] Other Evaluation note Note Date & Type Note Facility Evaluation note No assessment information [facility] Work Phone: Evaluation note Note Date & [...] Spasm of muscle documented in this encounter [facility] Evaluation note Note Date & Type Note [...] as to focal or generalized (CMS/HCC)- Primary Insomnia, psychophysiological ELICEO (obstructive sleep apnea) Obstructive sleep apnea (adult) (pediatric) Migraine without aura, not intractable, without status migrainosus (CMS/HCC) Cervical paraspinal muscle spasm Spasm of muscle documented in this encounter [facility] Evaluation note Note Date & Type Note Facility Evaluation note Diagnosis Cervical paraspinal muscle spasm- Primary Spasm of muscle Trigger point of neck ELICEO (obstructive sleep apnea) Obstructive sleep apnea (adult) (pediatric) Migraine without aura, not intractable, without status migrainosus Epilepsy undetermined as to focal or generalized (HCC) Epilepsy undetermined as to focal or generalized (HCC)- Primary Migraine without aura, not intractable, without status migrainosus ELICEO (obstructive sleep apnea) Obstructive sleep apnea [...] as to focal or generalized (HCC)- Primary Insomnia, psychophysiological ELICEO (obstructive sleep apnea) Obstructive sleep apnea (adult) (pediatric) Migraine without aura, not intractable, without status migrainosus Cervical paraspinal muscle spasm Spasm of muscle ELICEO (obstructive sleep apnea)- Primary Obstructive sleep apnea (adult) (pediatric) Epilepsy undetermined as to focal or generalized (HCC) Insomnia, psychophysiological Migraine without aura, not intractable, [...] Disorder Surgical History Right Tendon Attachment 2017 [employer] Other Summary Purpose Family History Relationship Condition Age at Onset Recorded Date/T fermin father Unknown Not Specified Multiple sclerosis Unknown Advance Directives Advance Directive Response Recorded Date/ Time Advance Directives No December 27 4:43pm Chief Complaint and Reason for Visit Chief Complaint sore throat, congest ion Additional Source Comments INFORMATION SOURCE (unrecogn ized section and content) DATE CREATED AUTHOR 01/27/[address] [facility] DATE CREATED AUTHOR AUTHOR'S MARGOTIZ ATYARA 12/23/2021 [facility] DATE CREATED AUTHOR AUTHOR'S ORGANIZ ATION 12/15/2024 [facility] EPIC REASON FOR VISIT (unrecogniz ed section and content) Reason Comments Migraine Sleep Apnea Reason Comments Seizures Care Teams (unrecognized sec tion and content) Team Status: Active Member Role Status Dates Duane Becerra DO Primary Care Provider Active Team Status: Inactive Member Role Status Dates Duane Becerra DO Primary Care Provider Active Start: September 24, 2023 End: September 24, 2023 Zenobia Vyas APRN Attending Provider Active Start: September 24, 2023 End: September 24, 2023 Spinning Lathe Operator Automatic Relationship Specialty Start Date End Date Unallocated, Shad Carlos MD [facility] [place] [address] PCP - General 03/12/23 Spinning Lathe Operator Automatic Relationship Specialty Start Date End Date Unallocated, MD Valentina [place] [address] PCP - General 03/12/23 Spinning Lathe Operator Automatic Relationship Specialty Start Date End Date Unallocated, Shad Carlos MD [facility] [place] [address] PCP - General 03/12/23 Spinning Lathe Operator Automatic Relationship Specialty Start Date End Date Unallocated, Shad Carlos MD [address] [place] [address] [facility] [place] [address] PCP - General 03/12/23 Spinning Lathe Operator Automatic Relationship Specialty Start Date End Date Unallocated, Shad Carlos MD [facility] [place] [address] PCP - General 03/12/23 Spinning Lathe Operator Automatic Relationship Specialty Start Date End Date Unallocated, Shad Carlos MD [facility] [place] [address] PCP - General 03/12/23 Goals (unrecognized section [...] BE BASED ON THE PRIMARY CLINICAL RECORDS. [facility], [facility]. provides no warranty or guarantee of the accuracy or completeness of information in this document.
[2024-12-27 10:41] LABS: Hematocrit 40.5 % (36.0-48.0); Hemoglobin 13.4 g/dL (12.0-16.0); Immature Granulocytes Abs Auto 0.03 10^3/uL (0.00-0.03); Immature Granulocytes Pct Auto 0.5 % (0.0-0.5); Lymphocytes Absolute Auto 1.9 10^3/uL (1.2-3.8); Mean Corpuscular HGB Conc 33.1 g/dL (29.9-35.2); Mean Corpuscular Hemoglobin 32.4 pg (26.7-34.0); Mean Corpuscular Volume 97.8 fL (81.0-99.0); Platelet Count 324 10^3/uL (150-450); Red Blood Count 4.14 10^6/uL (4.20-5.40); White Blood Count 6.4 10^3/uL (4.0-11.0)
[2024-12-27 11:08] LABS: Alanine Aminotransferase 58 U/L (14-59); Albumin Globulin Ratio 1.1; Albumin Level 3.8 g/dL (3.4-5.0); Alkaline Phosphatase 44 U/L (46-116); Anion Gap 13.3; Aspartate Amino Transferase 39 U/L (15-37); Blood Urea Nitrogen 16.0 mg/dL (7.0-18.0); Calcium 9.6 mg/dL (8.5-10.1); Carbon Dioxide 29.0 mmol/L (21.0-32.0); Chloride 106 mmol/L (98-107); Estimated GFR (African America >60 (>=60 mL/min/1.73m^2); Estimated GFR (Non-African Ame >60 (>=60 mL/min/1.73m^2); Globulin 3.6 g/dL; Glucose 101 mg/dL (74-106); Potassium 4.3 mmol/L (3.5-5.1); Sodium 144 mmol/L (136-145); Total Protein 7.4 g/dL (6.4-8.2)
[2024-12-27 11:19] LABS: Free T3 2.72 pg/mL (2.18-3.98); Thyroid Stimulating Hormone 2.066 uIU/mL (0.358-3.740)
[2024-12-27 11:28] LABS: Folate 24.00 ng/mL (8.60-58.90)
[2024-12-28 03:07] LABS: Vitamin B12 495 pg/mL (232-1245)
[2024-12-28 04:07] LABS: FSH 7.6 mIU/mL (.)
== END 2024-12-27 09:44 | disposition home or self-care (01) ==
PROVIDERS: PCP Family Medicine; Visit Provider Family Medicine
DX: E55.9 Vitamin D deficiency, unspecified (principal); R73.03 Prediabetes; R53.82 Chronic fatigue, unspecified; R51.9 Headache, unspecified; G62.9 Polyneuropathy, unspecified; I70.91 Generalized atherosclerosis; E78.5 Hyperlipidemia, unspecified; R79.89 Other specified abnormal findings of blood chemistry; G60.9 Hereditary and idiopathic neuropathy, unspecified; D51.3 Other dietary vitamin B12 deficiency anemia; Z11.3 Encounter for screening for infections with a predominantly sexual mode of transmission; E53.1 Pyridoxine deficiency; M79.10 Myalgia, unspecified site; R23.2 Flushing
CPT/HCPCS: 36415; 80053; 80183; 82306; 82607; 82627; 82670; 82746; 83001; 83002; 83036; 84144; 84146; 84402; 84403; 84439; 84443; 84481; 85025

== ENCOUNTER 2024-12-27 09:50 | Outpatient (OUT) | payer OTHER, SELFPAY | END 2024-12-27 09:51 | disposition home or self-care (01) | LOC: LAB 09:53 | PROVIDERS: PCP Family Medicine; Visit Provider Psychiatry & Neurology Neurology | DX: R51.9 Headache, unspecified (principal); G62.9 Polyneuropathy, unspecified; R79.89 Other specified abnormal findings of blood chemistry; G60.9 Hereditary and idiopathic neuropathy, unspecified; Z11.3 Encounter for screening for infections with a predominantly sexual mode of transmission; E53.1 Pyridoxine deficiency; I70.91 Generalized atherosclerosis; D51.3 Other dietary vitamin B12 deficiency anemia; M79.10 Myalgia, unspecified site; E78.5 Hyperlipidemia, unspecified | CPT/HCPCS: 36415; 80183 ==